=== PATIENT | male | born 1980 | race Caucasian/White ===

== ENCOUNTER 2024-02-18 20:20 | Emergency (ER) | payer OTHER, SELFPAY ==
[2024-02-18 20:24] VITALS: BP 160/88; PULSE 58; TEMP 36.6; O2SAT 98; BMI 36.0
--- NOTE | 2024-02-18 20:31 | ED.EXTPRO1 ---
HPI - Extremity Problem General Chief complaint: Extremity Problem, Nontraumatic Stated complaint: Lower Extremity Pain Time Seen by Provider: 02/18/24 20:27 Source: patient Mode of arrival: Wheelchair Limitations: no limitations History of Present Illness HPI Narrative: This 43-year-old male presents for evaluation of right low back pain with radiation down the lateral aspect of his right leg to his knee and at times down to his ankle. The patient states he started working out last week after not doing any exercise for approximately 2 years. He started with low back exercises. A day or 2 later he started having pain in his low back and went to the chiropractor and had a manipulation. He states he was feeling okay after that and went to [place] over the weekend to help his friend get ready for her birthday green party. He states he was feeling fine over the weekend and came home tonight and was trying to lay down to get some rest before work when he started having pain in his right lumbar region going into the lateral aspect of the right leg, down the iliotibial band to the right knee. He states he also was walking up the stairs and gently hit his knee. He did not fall at that time. He has no weakness or numbness. He denies any chest pain or shortness of breath. He has no calf pain or swelling. He has not had any bowel or bladder dysfunction. Related Data Allergies Allergy/AdvReac Type Severity Reaction Status Date / Time Benzodiazepines Allergy Intermediate Verified 02/18/24 20:27 ssri Allergy Intermediate Uncoded 02/18/24 20:27 Review of Systems ROS Status of ROS 10 or more systems reviewed and unremarkable except as noted in history and below Exam Narrative Exam Narrative: Vital signs and Nursing Notes reviewed: Patient is afebrile, mildly bradycardic with a pulse of 58 and blood pressure is elevated at 160/88, he is not hypoxic with pulse ox of 98% on room air General: Awake, alert, oriented, moderately overweight male, no respiratory distress, he moves easily about the stretcher HEENT: Normocephalic atraumatic, mucous membranes are moist and pink, eyes are clear, normal conjunctiva, vision is grossly intact Neck: Supple, no midline bony vertebral cervical spine tenderness Chest: Lungs are clear to auscultation with good air entry, there is no wheezing rhonchi or rales appreciated no accessory muscle use, patient is speaking in complete sentences-no chest wall tenderness to palpation CVS: Regular rate and rhythm S1-S2, no murmurs rubs or gallops, pulses are brisk and equal bilaterally ABD: Soft, nondistended, nontender, no rebound guarding or rigidity, bowel sounds are normal, no pulsatile masses appreciated Extremities: Moving all extremities, mild tenderness in the right lower lumbar region and right buttock region. Patient is able to complete all range of motion with the right and left lower extremity. He is able to flex and extend at the hip and knee. He is able to adductor and AB duct the right lower extremity. There is no calf swelling or tenderness. There is no notable knee effusion, redness or tenderness. Achilles is intact. Skin: Normal in appearance without rash,pallor, petechiae or purpura Neuro: No focal deficits, shank paperer strength is intact, upper and lower extremity strength and sensation is intact, deep tendon reflexes are brisk and equal bilaterally Constitutional Vital Signs, click to edit/add: Last Vital Signs Temp 98 F 02/18/24 20:24 Pulse 58 L 02/18/24 20:24 Resp 16 02/18/24 20:24 BP 160/88 H 02/18/24 20:24 Pulse Ox 98 02/18/24 20:24 Course Vital Signs Vital signs: Vital Signs Temperature 98 F 02/18/24 20:24 Pulse Rate 58 L 02/18/24 20:24 Respiratory Rate 16 02/18/24 20:24 Blood Pressure 160/88 H 02/18/24 20:24 Pulse Oximetry 98 02/18/24 20:24 Temperature 98 F 02/18/24 20:24 Pulse Rate 58 L 02/18/24 20:24 Respiratory Rate 16 02/18/24 20:24 Blood Pressure 160/88 H 02/18/24 20:24 Pulse Oximetry 98 02/18/24 20:24 MDM - Extremity (Nontraumatic) MDM Narrative Medical decision making narrative: This 43-year-old male presents for evaluation of right lower lumbar pain radiating down into his right buttock and down the lateral aspect of his right leg to his right knee and at times into his right foot. He started working out with back exercises last week then started having back pain and was seen by a chiropractor. After his chiropractic manipulation he was doing better until today when he tried to rest and started having pain going down his low back into his buttock and down his leg. He has no calf swelling or tenderness. He has no chest pain or shortness of breath. He has no dizziness palpitations tachycardia or syncope. I have no concerns about a DVT. His symptoms are consistent with acute lumbar strain with sciatica. The patient has never had [place] in the past but has tolerated Percocet. He was given a dose of Toradol and Solu-Medrol in the emergency department and will be discharged home with 2 Percocet and a Zofran as well as a prescription for Percocet, Motrin and Robaxin. Discharge Plan Discharge Stand Alone Forms: Portal Instructions Chief Complaint: Extremity Problem, Nontraumatic Clinical Impression: Acute myofascial strain of lumbar region, Sciatica of right side Patient Disposition: Home, Self-Care Time of Disposition Decision: 20:46 Condition: Good Print Language: Divehi Instructions: Sciatica (ED), Acute Low Back Pain (ED), Lower Back Exercises (ED) Referrals: TRISTON HANCOCK [Primary Care Provider] - 1 week
[2024-02-18] MEDS: METHYLPREDNISOLONE SOD SUCC PF 125 MG/2 ML VIAL IM (21:13)
[2024-02-18] MEDS: OXYCODONE HCL/ACETAMINOPHEN 5MG/325MG 2 TAB PO (21:13)
[2024-02-18] MEDS: KETOROLAC TROMETHAMINE 60 MG/2 ML VIAL IM (21:14)
[2024-02-18] MEDS: ONDANSETRON 4 MG RAPDIS TABLET SL (21:14)
== END 2024-02-18 21:26 | disposition home or self-care (01) ==
PROVIDERS: Emergency Provider Emergency Medicine; PCP Nurse Practitioner Family
DX: S39.012A Strain of muscle, fascia and tendon of lower back, initial encounter (principal); M54.41 Lumbago with sciatica, right side; X50.9XXA Other and unspecified overexertion or strenuous movements or postures, initial encounter
CPT/HCPCS: 96372; 99284; J1885; J2919; Q0162

== ENCOUNTER 2024-08-30 19:41 | Emergency (ER) | payer OTHER, SELFPAY ==
[2024-08-30 19:48] VITALS: BP 153/100; PULSE 80; TEMP 37.1; O2SAT 95; BMI 34.5
--- NOTE | 2024-08-30 19:56 | XR_ITS ---
The [address] [address] Patient Name: PRIYANK FONG MRN: [id number] date: 1980 Sex: M Assigned Patient Location: ER Current Patient Location: Accession/Order Number: [id number] Exam Date: 08/30/2024 08:10 Report Date: 08/30/2024 21:24 At the request of: EDISON JACOBS Procedure: XR wrist RT min 3V EXAMINATION: XR wrist RT min 3V, , 08/30/2024 8:10 AM EST INDICATION: pain HISTORY: Ordering Provider Reason for Exam: pain Technologist Note: Additional: COMPARISON: None. TECHNIQUE: Right wrist x-ray: 3 view(s). FINDINGS: No acute fracture. Joint alignment is anatomic. Joint spaces are preserved. Soft tissues are within normal limits. XR/XR wrist RT min 3V IMPRESSION: No acute fracture or traumatic malalignment. Electronically authenticated by: FRANK GOVEA Date: 08/30/2024 21:24
[2024-08-30] MEDS: KETOROLAC TROMETHAMINE 60 MG/2 ML VIAL IM (20:06)
--- NOTE | 2024-08-30 20:20 | ED_ITS ---
HPI HPI - General Adult General Chief complaint: Extremity Injury, Upper Stated complaint: UE INJURY Time Seen by Provider: 08/30/24 19:46 Source: patient Mode of arrival: walk-in Limitations: no limitations History of Present Illness HPI narrative: 44-year-old male presents for chief complaint of right wrist pain. He states he had initial pain about a week ago and has gotten progressively worse. States today feels like his wrist is frozen. No other injury or trauma. He denies a known history of gout. He states he took 1 steroid pill that he had leftover from previous and Naprosyn earlier today. No redness or swelling to the extremity no obvious deformity. He is right-hand dominant Related Data Previous Rx's ?Medication ?Instructions ?Recorded prednisone 20 mg tablet 20 mg PO DAILY #5 tabs 08/30/24 Allergies Allergy/AdvReac Type Severity Reaction Status Date / Time Benzodiazepines Allergy Unknown Unknown Verified 08/30/24 19:55 ssri Allergy Unknown Unknown Uncoded 08/30/24 19:55 Opioid HPI Opioid Management Most Recent Opioid Data: Last Pain Scale 8 08/30/24 20:10 08/30/24 Last ED Pain Assessment 08/30/24 20:09 Review of Systems ROS Narrative All Systems are negative except as noted/marked.All systems reviewed and otherwise negative PFSH PFSH Social History Little interest or pleasure in doing things: not at all Feeling down, depressed, or hopeless: not at all Exam Narrative Exam Narrative: Nurses note and vital signs reviewed and patient is not hypoxic. General: The patient appears well and in no apparent distress. Patient is resting comfortably on cart. Skin: Warm, dry, no pallor noted. There is no rash noted. Head: Normocephalic, atraumatic Eye: Normal conjunctiva, no drainage, EOMI. PERRL Ears, Nose, Mouth, and Throat: oral mucosa is moist. Nares patent. Mouth without vesicles. Ear canals patent. Tm's without Erythema Cardiovascular: Regular Rate and Rhythm Respiratory: Patient is in no distress, no accessory muscle use, lungs are clear to auscultation, no wheezing, rales or rhonchi Musculoskeletal: Right wrist tenderness no acute deformity dislocation no redness or swelling, patient has no evidence of calf tenderness, no pitting edema, symmetrical pulses noted bilaterally Neurological: A&O x4, normal speech Psychiatric: Cooperative Constitutional Vital Signs, click to edit/add: Last Vital Signs Temp 98.8 F 08/30/24 19:48 Pulse 80 08/30/24 19:48 Resp 16 08/30/24 19:48 BP 140/95 H 08/30/24 20:36 Pulse Ox 95 08/30/24 19:48 O2 Del Method Room Air 08/30/24 19:48 Course Vital Signs Vital signs: Vital Signs Temperature 98.8 F 08/30/24 19:48 Pulse Rate 80 08/30/24 19:48 Respiratory Rate 16 08/30/24 19:48 Blood Pressure 153/100 H 08/30/24 19:48 Pulse Oximetry 95 08/30/24 19:48 Oxygen Delivery Method Room Air 08/30/24 19:48 Temperature 98.8 F 08/30/24 19:48 Pulse Rate 80 08/30/24 19:48 Respiratory Rate 16 08/30/24 19:48 Blood Pressure 140/95 H 08/30/24 20:36 Pulse Oximetry 95 08/30/24 19:48 Oxygen Delivery Method Room Air 08/30/24 19:48 Medical Decision Making Differential Diagnosis Differential Diagnosis: Sprain, strain Medical Records Medical records reviewed: Yes I reviewed the patient's medical records Medical records narrative: Here with an accidental injury to the right wrist that occurred 1 week ago when he was using his wrist he felt a pulling sensation. Patient's x-ray shows no acute deformity or fracture. Discharged home with a prescription for Medrol Dosepak follow-up with Gokul's office. Patient given Balaji wrap as well to help with comfort. Imaging Data wrist: Radiologist's impression: ITS Impressions Wrist X-Ray 08/30/24 19:56 IMPRESSION: No acute fracture or traumatic malalignment. Electronically authenticated by: FRANK GOVEA Date: 08/30/2024 21:24 Discharge Plan Discharge Chief Complaint: Extremity Injury, Upper Clinical Impression: Sprain and strain of wrist Patient Disposition: Home, Self-Care Time of Disposition Decision: 20:19 Condition: Good Prescriptions / Home Meds: New prednisone 20 mg tablet 20 mg PO DAILY Qty: 5 0RF Print Language: Kinyarwanda Instructions: Sprain (ED), Wrist Sprain (ED) Referrals: TRISTON HANCOCK [Primary Care Provider] - 1 week Tk Hodgson MD [Physician] - 09/07/24 10:30 am Discharge Date/Time: 08/30/24 20:38
[2024-08-30 20:36] VITALS: BP 140/95
== END 2024-08-30 20:38 | disposition home or self-care (01) ==
PROVIDERS: Emergency Provider Emergency Medicine; PCP Nurse Practitioner Family
DX: S63.501A Unspecified sprain of right wrist, initial encounter (principal); S66.911A Strain of unspecified muscle, fascia and tendon at wrist and hand level, right hand, initial encounter; X58.XXXA Exposure to other specified factors, initial encounter
CPT/HCPCS: 73110; 96372; 99284; J1885

== ENCOUNTER 2025-05-02 18:55 | Emergency (ER) | payer OTHER, SELFPAY ==
--- OUTSIDE RECORDS SUMMARY | 2025-02-11 09:15 | XMS_ITS ---
Author Organization [facility] [place] Address [address] [place] [address] Care Team Providers Care Hydroponics Worker Name Role Phone Lenore Nogueira Primary Care Provider Allergies Allergen (clinical drug ingredient) Drug/Non Drug Allergy documented on EMR Reaction Allergy Type Onset Date Status Substance with serotonin re-uptake inhibitor mechanism of action (substance) SSRI's (uncoded) Worsen Symptoms Allergy Active REASON FOR VISIT Presents to office with mom for c/o migraine x1day, Also c/o Right side sciatica started to flare yesterday but really bad today, SELF PAY Medications Medication SIG (Take, Route, Frequency, Duration) Notes Start Date End Date Status Fioricet 50-300-40 MG 1 capsule as neede d Orally every 6 hrs for 30 days PRN 08/31/2024 Active Losartan Potassium 50 MG 1 tablet Orally Once a day for 30 days 06/24/2023 Active Amitriptyline HCl 25 MG 1 tablet at bedt neil as needed Orally Once a day for 30 days PRN 09/14/2024 Active Ciprofloxacin HCl 500 MG 1 tablet Orally every 12 hrs for 10 days 09/29/2024 Active Omeprazole 40 MG 1 capsule 30 minutes before morning meal Orally Once a day for 30 days 06/17/2023 Active Meclizine HCl 25 MG 1 tablet as needed O rally Q 6 hours 09/29/2024 Active Meloxicam 7.5 MG 1 tablet Orally Once a day for 30 days 11/30/2024 Active Social History Tobacco Use: Social History Observation Description Date Details (start date - stop date) Never Smoker NA - NA Tobacco Use/Smoking Question Answer Notes Patient is a nonsmoker AUDIT-C (Standard) Question Answer Notes Did you have a drink containing alcohol in the p ast year? No Points 0 Interpretation Negative Vital Signs Blood pressure systolic 144 mm Hg 02/12/20 25 Blood pressure diastolic 100 mm Hg 025 Height 67 in 02/11/2025 Weight 251.6 lbs 02/11/2025 BMI 39.4 kg/m2 02/11/2025 Encounters Encounter Location Date Provider Diagnosis [facility] [address] [place] [address] 02/11/2025 Lenore Mirlande Migraine G43.909 and Right sciatic nerve pain M54.31 Assessments Encounter Date Diagnosis (ICD Code) Assessment Notes Treatment Notes Treatment Clinical Notes Section Notes 02/11/2025 Migraine (ICD-10 - G43.909) toradol 60 norflex 60 samples of nurtec, ubrelvy [facility] 02/11/2025 Right sciatic nerve pain (ICD-10 - M54.31) kenalog 120 Plan Of Treatment Treatment Notes Assessment Notes Migraine toradol 60 norflex 60 samples of nurtec, ubrelvy given [facility] Right sciatic nerve pain kenalog 120 Next Appt Details Follow Up: prn, Reason: Medications Administered Medication Instructions Date of Administration Dosage Notes Triamcinolone 40 mg/ml 02/11/2025 120 mg Ketorolac Tromethamine 02/11/2025 60 mg Orphenadrine Citrate 02/11/2025 60 mg Progress Notes * Delonte FONG LDOB:02/1980 (44 yo M)Acc No.[id number]:02/11/2025 Progress Note Patient: Janak WEAVERmeaghan Hess Provider: Rajendra Nogueira ([facility]), [place] :1980 A ge:44 Y S ex:Male Date:02/11/2025 Address:[address] [place], [place] [id number] Check In:01:15 PM ESTCheck O ut:01:39 PM EST Subjective: * Chief Complaints: * 1 . Presents to office with mom for c/o migraine x1day. 2. Also c/o Right side sciatica started to flare yesterday but really bad today. 3. SELF PAY. * HPI: G eneral: took excedrin didnt help ELIAS right sciatica back of thigh to knee. * ROS: G eneral/Constitutional: Fever d enies. H eadache a dmits. W eight loss d enies. O phthalmologic: Discharge d enies. E ye Pain d enies. I tching and redness d enies. E NT: Nasal discharge d enies. N sarah congestion d enies.?Sore throat d enies. C ardiovascular: Chest tightness/ heavy pressure d enies. R apid heart rate d enies. S welling of extremities d enies. C hest pain d enies. ? R espiratory: Productive cough d enies. C hest pain d enies. C ough d enies. S hortness of breath d enies. W heezing d enies. ? G astrointestinal: Abdominal pain d enies. C onstipation d enies. D ecreased appetite d enies. D iarrhea d enies. N ausea d enies. V omiting?denies. G enitourinary: Urinary incontinence d enies. P ainful urination d enies. M usculoskeletal: Back pain a dmits right sciatica to knee . N lobito pain d enies. M uscle aches d enies. S kin: Rash d enies. S kin lesion(s) d enies. ? * Active Problem List F41.9 Anxiety Modified On:06/17/2023/U Status:confirmed M25.562 Knee pain, left Modified On:06/17/2023U Status:confirmed G44.209 Tension headache Modified On:06/17/2023U Status:confirmed E66.3 Over weight Modified On:06/17/2023/U Status:confirmed G47.00 Insomnia Modified On:06/17/2023/U Status:confirmed R13.10 Dysphagia, unspecifi ed Modified On:06/17/2023/U Status:confirmed I10 Essential (primary) hypertension Modified On:09/19/2023/U Status:confirmed M54.31 Right sciatic nerve pain Modified On:02/19/2024/U Status:confirmed M19.90 Arthritis Modified On:11/30/2024/U Status:confirmed G43.909 Migraine Modified On:12/24/2024/U Status:confirmed E78.5 Hyperlipidemia Modified On:12/31/2024 Status:confirmed * Medical History: A nxiety, Skin tags, multiple acquired, Knee pain, left, Occult blood in stools, Insomnia, Tension headache, Tendonitis, Back pain, thoracic, Acute paronychia of finger, Over weight, Bronchitis.? * Surgical History: T osilectomy . * Family History: F ather: . M other: alive. B rother(s): alive. 1 brother(s) - healthy. .? * Social History: T obacco Use: T obacco Use/Smoking P atient is a n onsmoker D rug/Alcohol: A RY-C (Standard) D id you have a drink containing alcohol in the past year? N o P oints 0 I nterpretation N egative * Medications: T aking Amitriptyline HCl 25 MG Tablet 1 tablet at bedtime as needed Orally Once a day , Notes to Pharmacist: PRN, Taking Ciprofloxacin HCl 500 MG Tablet 1 tablet Orally every 12 hrs , Taking Fioricet(Rpjabhzlhe-CKHT-Iwmiryqq) 50-300-40 MG Capsule 1 capsule as needed Orally every 6 hrs , Notes to Pharmacist: PRN, Taking Losartan Potassium 50 MG Tablet 1 tablet Orally Once a day , Taking Meclizine HCl 25 MG Tablet 1 tablet as needed Orally Q 6 hours , Taking Meloxicam 7.5 MG Tablet 1 tablet Orally Once a day , Taking Omeprazole 40 MG Capsule Delayed Release 1 capsule 30 minutes before morning meal Orally Once a day , Discontinued predniSONE 20 MG Tablet 2 tablet Orally Once a day , Medication List reviewed and reconciled with the patient * Allergies: S SRI's: Worsen Symptoms - Allergy. Objective: * Vitals: W t:251.6lbs, Ht: 67 in, BP:144/100mm Hg, BMI:39.4Index, Ht-cm: 170.18 cm, Wt-k.13 kg. * Examination: G eneral Examinations: GENERAL APPEARANCE: a lert and oriented, i n no acute distress. EYES: c onjunctiva normal, sclera non-icteric. NOSE: n ormal external appearance. LUNGS: c lear to auscultation bilaterally. CARDIO: r egular rate and rhythm, S1, S2 normal. MUSCULOSKELETAL: d ecreased ROM due to right sciatica. SKIN: w arm and dry. Assessment: * Assessment: 1. M igraine - G43.909 (Primary) 2 . R ight sciatic nerve pain - M54.31? Plan: * Treatment: 2. R ight sciatic nerve pain Notes: kenalog 120 * Therapeutic Injections: Triamcinolone 40 mg/ml : 120 mg (Route: Intramuscular) given by Sharon Camacho , MR on right deltoid (Migraine, Right sciatic nerve pain) Ketorolac Tromethamine : 60 mg (Route: Intramuscular) given by Sharon Camacho , MR on left deltoid (Migraine) Orphenadrine Citrate : 60 mg (Route: Intramuscular) given by Sharon Camacho , MR on right gluteus (Migraine) * Procedure Codes: J 3301 TMC ACET,PER 10MG., Units: 12.00 , 02668 THERAP.INJ. OF MED. INTRAMUSCULAR OR SUBCUTANEOUS, J1885 TORADOL, PER 15 MG, Units: 4.00 , J2360 NORFLEX,UP TO 60MG. * Preventive Medicine: Screenings/Counseling: B FL ACTION PLAN Above Normal BMI Follow-up D ietary management education, guidance, and counseling See treatment section of progress note for complete details of management plan. * Follow Up: p rn * * Electronically signed by Annette Nogueira , [employer], [employer] LABOURER.FISHING LURE ASSEMBLER.[id number] on 02/15/2025 at 09:13 AM EDT Sign off status: Completed Visit Status: C HK (Check Out) true * Provider: Rajendra Nogueira (HERBERT), FISHING LURE ASSEMBLER Date: 02/11/2025 Generated for Adan patton/Leanna/Fernando on: 05/02/2025 07:01 PM EDT History and Physical Notes * HPI (History of Present Illness) Category Sub-Category Detail Notes Category Not es General took excedrin didnt help ELIAS right sciatica back of thigh to knee Examination Category Sub-Category Detail Notes Category Not es General Examinations GENERAL APPEARANCE: alert a nd oriented, in no acute distress EYES: conjunctiva normal, sclera non-icteric EARS: NOSE: normal external appe arance THROAT: CARDIO: regular rate and rhy thm, S1, S2 normal LUNGS: clear to auscultatio n bilaterally ABDOMEN: SKIN: warm and dry BACK: MUSCULOSKELETAL: decreased ROM due to right sciatica LYMPH NODES:
--- OUTSIDE RECORDS SUMMARY | 2025-02-12 06:58 | XMS_ITS ---
Author Organization The [facility] [place] Address [address] [place] [address] Care Team Providers Care Banjo Repairer Name Role Phone Lenore Nogueira Primary Care Provider REASON FOR VISIT f/u from appt Encounters Encounter Location Date Provider Diagnosis [facility] [address] [place] [address] 02/12/2025 Lenore Nogueira Plan Of Treatment No Information Progress Notes * Delonte FONG LDOB:02/1980 (44 yo M)Acc No.[id number]:02/12/2025 Patient: Belg[place] Delonte ANTUNEZ :1980 A ge:44 Y S ex:Male Address:[address] [place] [address], [id number] * true * Date: Generated for Printi ng/Faorag/eTransmitting on: 0 05/02/2025 07:00 PM EDT
--- OUTSIDE RECORDS SUMMARY | 2025-03-02 07:00 | XMS_ITS ---
Author Organization The [facility] in [place] Address [address] [place] [address] Care Team Providers Care Ultimate Hoops Scoreboard Operator Name Role Phone Lenore Nogueira Primary Care Provider [phone] Allergies Allergen (clinical drug ingredient) Drug/Non Drug Allergy documented on EMR Reaction Allergy Type Onset Date Status Substance with serotonin re-uptake inhibitor mechanism of action (substance) SSRI's (uncoded) Worsen Symptoms Allergy Active REASON FOR VISIT SELF PAY back pain and foot pain, incident happened saturday night. patient said his sister had a seizure and held caught her from falling and hurt his back. some back swelling on his left side, no bruising Medications Medication SIG (Take, Route, Frequency, Duration) Notes Start Date End Date Status Fioricet 50-300-40 MG 1 capsule as neede d Orally every 6 hrs for 30 days PRN 08/31/2024 Active Losartan Potassium 50 MG 1 tablet Orally Once a day for 30 days 06/24/2023 Active Meloxicam 7.5 MG 1 tablet Orally Once a day for 30 days 11/30/2024 Active Omeprazole 40 MG 1 capsule 30 minutes before morning meal Orally Once a day for 30 days 06/17/2023 Active Amitriptyline HCl 25 MG 1 tablet at bedt neil as needed Orally Once a day for 30 days PRN 09/14/2024 Active Meclizine HCl 25 MG 1 tablet as needed O rally Q 6 hours 09/29/2024 Active Social History Tobacco Use: Social History Observation Description Date Details (start date - stop date) Never Smoker NA - NA Tobacco Use/Smoking Question Answer Notes Patient is a nonsmoker AUDIT-C (Standard) Question Answer Notes Did you have a drink containing alcohol in the p ast year? No Points 0 Interpretation Negative Vital Signs Blood pressure systolic 130 mm Hg 03/02/20 25 Blood pressure diastolic 72 mm Hg 025 Height 67 in 03/02/2025 Weight 248 lbs 03/02/2025 BMI 38.84 kg/m2 03/02/2025 Encounters Encounter Location Date Provider Diagnosis [facility] [address] [place] [address] 03/02/2025 Lenore Nogueira Acute back pain M54.9 Assessments Encounter Date Diagnosis (ICD Code) Assessment Notes Treatment Notes Treatment Clinical Notes Section Notes 03/02/2025 Acute back pain (ICD-10 - M54.9) Toradol and Norflex 60 kenalog 120 fu as needed Plan Of Treatment Treatment Notes Assessment Notes Acute back pain Toradol and Norflex 60 kenalog 120 fu as needed Next Appt Details Follow Up: prn, Reason: Medications Administered Medication Instructions Date of Administration Dosage Notes Ketorolac Tromethamine 03/02/2025 60 mg Orphenadrine Citrate 03/02/2025 60 mg Triamcinolone 40 mg/ml 03/02/2025 120 mg Progress Notes * Delonte FONG LDOB:02/1980 (44 yo M)Acc No.[id number]:03/02/2025 Progress Note Patient: Delonte WEAVER Provider: Rajendra Nogueira ([facility]), HEART DOCTOR :1980 A ge:44 Y S ex:Male Date:03/02/2025 Address:[address] [place], [place] [id number] Check In:10:59 AM ESTCheck O ut:11:24 AM EST Subjective: * Chief Complaints: * 1 . SELF PAY back pain and foot pain. 2. Incident happened saturday night. patient said his sister had a seizure and held caught her from falling and hurt his back. some back swelling on his left side, no bruising. * ROS: G eneral/Constitutional: Fever d enies. H eadache d enies. W eight loss?denies. O phthalmologic: Discharge d enies. E ye [...] P ainful urination d enies. M usculoskeletal: Patient complaining of l eft medial foot pain. B ack pain l eft side. N lobito pain d enies. M uscle aches d enies. S kin: Rash d enies. S kin lesion(s) d enies. ? * Active Problem List F41.9 Anxiety Modified On:06/17/2023U Status:confirmed M25.562 Knee pain, left Modified On:06/17/2023U Status:confirmed G44.209 Tension headache Modified On:06/17/2023U Status:confirmed E66.3 Over weight Modified On:06/17/2023U Status:confirmed G47.00 Insomnia Modified On:06/17/2023U Status:confirmed R13.10 Dysphagia, unspecifi ed Modified On:06/17/2023U Status:confirmed I10 Essential (primary) hypertension Modified On:09/19/2023U Status:confirmed M54.31 Right sciatic nerve pain Modified On:02/19/2024U Status:confirmed M19.90 Arthritis Modified On:11/30/2024U Status:confirmed G43.909 Migraine Modified On:05/01/2025W/U Status:confirmed E78.5 Hyperlipidemia Modified On:12/31/2024W/U Status:confirmed * Medical History: A nxiety, Skin tags, multiple acquired, Knee pain, left, Occult blood in stools, Insomnia, Tension headache, Tendonitis, Back pain, thoracic, Acute paronychia of finger, Over weight, Bronchitis.? * Surgical History: T osilectomy . * Family History: F ather: . M other: alive. B rother(s): alive. 1 brother(s) , 1 sister(s) - healthy. . * Social History: T obacco Use: T [...] day , Notes to Pharmacist: PRN, Taking Fioricet(Jueygfbctc-FZLC-Qhkfxnah) 50-300-40 MG Capsule 1 capsule as needed [...] morning meal Orally Once a day , Medication List reviewed and reconciled with the patient * Allergies: S SRI's: Worsen Symptoms - Allergy. Objective: * Vitals: W t:248lbs, Ht: 67 in, BP:130/72mm Hg, BMI:38.84Index, Ht-cm: 170.18 cm, Wt-k.49 kg. * Examination: G eneral Examinations: GENERAL APPEARANCE: a lert and oriented, i n no acute distress. EYES: c onjunctiva normal, sclera non-icteric. NOSE: n ormal external appearance. LUNGS: c lear to auscultation bilaterally. CARDIO: r egular rate and rhythm, S1, S2 normal. ABDOMEN: s oft, nontender. MUSCULOSKELETAL: l eft lower back, tenderness with palpation, decreased ROM due to pain no redness, swelling noted to left foot. SKIN: w arm and dry. Assessment: * Assessment: 1. A cute back pain - M54.9 (Primary) Plan: * Treatment: * Therapeutic Injections: Triamcinolone 40 mg/ml : 120 mg (Route: Intramuscular) given by XI De La Cruz on right gluteus (Acute back pain) Ketorolac Tromethamine : 60 mg (Route: Intramuscular) given by XI De La Cruz on right gluteus (Acute back pain) Orphenadrine Citrate : 60 mg (Route: Intramuscular) given by XI De La Cruz on left gluteus (Acute back pain) * Procedure Codes: 9 6372 THERAP.INJ. OF MED. INTRAMUSCULAR OR SUBCUTANEOUS, J1885 TORADOL, PER 15 MG, Units: 4.00 , J2360 NORFLEX,UP TO 60MG., J3301 TMC ACET,PER 10MG., Units: 12.00 * Preventive Medicine: Screenings/Counseling: B NC ACTION PLAN Above Normal BMI Follow-up D ietary management education, guidance, and counseling * Follow Up: p rn * * Sign off status: Completed Visit Status: C HK (Check Out) true * Provider: Rajendra Nogueira ([facility]), HEART DOCTOR Date: 03/02/2025 Generated for Adan patton/Leanna/eTransmitting on: 0 05/02/2025 07:00 PM EDT History and Physical Notes * Examination Category Sub-Category Detail Notes Category Not es General Examinations GENERAL APPEARANCE: alert a nd oriented, in no acute distress EYES: conjunctiva normal, sclera non-icteric EARS: NOSE: normal external appe arance THROAT: CARDIO: regular rate and rhy thm, S1, S2 normal LUNGS: clear to auscultatio n bilaterally ABDOMEN: soft, nontender SKIN: warm and dry BACK: MUSCULOSKELETAL: left lower back, ten derness with palpation, decreased ROM due to pain no redness, swelling noted to left foot LYMPH NODES:
--- OUTSIDE RECORDS SUMMARY | 2025-03-16 09:30 | XMS_ITS ---
Author Organization The [facility] in [place] Address [address] [place] [address] Care Team Providers Care Resource Director Name Role Phone Lenore Nogueira Primary Care Provider Allergies Allergen (clinical drug ingredient) Drug/Non Drug Allergy documented on EMR Reaction Allergy Type Onset Date Status Substance with serotonin re-uptake inhibitor mechanism of action (substance) SSRI's (uncoded) Worsen Symptoms Allergy Active REASON FOR VISIT Presents to office alone for c/o migraine x2 days Medications Medication SIG (Take, Route, Frequency, Duration) Notes Start Date End Date Status Losartan Potassium 50 MG 1 tablet Orally Once a day for 30 days 06/24/2023 Active Fioricet 50-300-40 MG 1 capsule as neede d Orally every 6 hrs for 30 days PRN 08/31/2024 Active Amitriptyline HCl 25 MG 1 tablet at bedt neil as needed Orally Once a day for 30 days PRN 09/14/2024 Active Meloxicam 7.5 MG 1 tablet Orally [...] Interpretation Negative Vital Signs Blood pressure systolic 138 mm Hg 03/16/20 25 Blood pressure diastolic 86 mm Hg 025 Height 67 in 03/16/2025 Weight 245.4 lbs 03/16/2025 BMI 38.43 kg/m2 03/16/2025 Encounters Encounter Location Date Provider Diagnosis [facility] [address] [place] [address] 03/16/2025 Lenore Nogueira Migraine G43.909 Assessments Encounter Date Diagnosis (ICD Code) Assessment Notes Treatment Notes Treatment Clinical Notes Section Notes 03/16/2025 Migraine (ICD-10 - G43.909) Toradol 60 Norflex 60 samples nurtec, ubrelvy fu [place] , [place] fu [place]? Plan Of Treatment Treatment Notes Assessment Notes Migraine Toradol 60 Norflex 60 samples nurtec, ubrelvy fu [place] , [place] fu [place]? Next Appt Details Follow Up: prn, Reason: Medications Administered Medication Instructions Date of Administration Dosage Notes Ketorolac Tromethamine 03/16/2025 60 mg Orphenadrine Citrate 03/16/2025 60 mg Progress Notes * Delonte FONG LDOB:02/1980 (44 yo M)Acc No.[id number]:03/16/2025 Progress Note Patient: Belgica ANTUNEZ Delonte Deshawn Provider: Rajendra Nogueira ([facility]), SHIFT SUPERINTENDENT CAUSTIC CRESYLATE :1980 A ge:44 Y S ex:Male Date:03/16/2025 Address:[address] [place], [place] [id number] Check In:01:28 PM ESTCheck O ut:02:02 PM EST Subjective: * Chief Complaints: * 1 . Presents to office alone for c/o migraine x2 days. * HPI: G eneral: headache for 2 days excedrin not doing it base of skull shoots to right side, throbbing, noises bother. * ROS: G eneral/Constitutional: Fever d enies. [...] urination d enies. M usculoskeletal: Back pain d enies. N lobito pain d enies. M uscle [...] Arthritis Modified On:11/30/2024U Status:confirmed G43.909 Migraine Modified On:12/24/2024U Status:confirmed E78.5 Hyperlipidemia Modified On:12/31/2024U Status:confirmed * Medical History: A nxiety, Skin tags, multiple acquired, Knee pain, left, Occult blood in stools, Insomnia, Tension headache, Tendonitis, Back pain, thoracic, Acute paronychia of finger, Over weight, Bronchitis.? * Surgical History: T osilectomy . * Family History: F ather: . M other: alive. B jorge(s): alive. 1 brother(s) , 1 sister(s) - [...] day , Notes to Pharmacist: PRN, Taking Fioricet(Xjcgxoeitg-AQIC-Dmfsykph) 50-300-40 MG Capsule 1 capsule as needed [...] Symptoms - Allergy. Objective: * Vitals: W t:245.4lbs, Ht: 67 in, BP:138/86mm Hg, BMI:38.43Index, Ht-cm: 170.18 cm, Wt-k.31 kg. * Examination: G eneral Examinations: GENERAL APPEARANCE: a lert and oriented. NOSE: n ormal external appearance. LYMPH NODES: n ormal, no cervical, axillary, or inguinal adenopathy. LUNGS: c lear to auscultation bilaterally. CARDIO: r egular rate and rhythm, S1, S2 normal. ABDOMEN: s oft, nontender. MUSCULOSKELETAL: G ait and station normal. SKIN: w arm and dry. Assessment: * Assessment: 1. [facility] G43.909 (Primary) Plan: * Treatment: * Therapeutic Injections: Ketorolac Tromethamine : 60 mg (Route: Intramuscular) given by MR Brenda on right deltoid (Migraine) Orphenadrine Citrate : 60 mg (Route: Intramuscular) given by Sharon Camacho , on left deltoid (Migraine) * Procedure Codes: 9 6372 THERAP.INJ. OF MED. INTRAMUSCULAR OR SUBCUTANEOUS, J1885 TORADOL, PER 15 MG, Units: 4.00 , J2360 NORFLEX,UP TO 60MG. * Preventive Medicine: Screenings/Counseling: B ME ACTION PLAN Above Normal BMI Follow-up D ietary management education, guidance, and counseling See treatment section of progress note for complete details of management plan. * Follow Up: p rn * * Electronically signed by Annette Nogueira , EXCHANGE TELLER, JIG AND FIXTURE REPAIRER.SHIFT SUPERINTENDENT CAUSTIC CRESYLATE.[id number] on 03/17/2025 at 11:45 AM EDT Sign off status: Completed Visit Status: C HK (Check Out) true * Provider: Rajendra Nogueira ([facility]), SHIFT SUPERINTENDENT CAUSTIC CRESYLATE Date: 0 03/16/2025 Generated for Printi ng/Leanna/eTransmitting on: 0 05/02/2025 07:00 PM EDT History and Physical Notes * HPI (History of Present Illness) Category Sub-Category Detail Notes Category Not es General headache for 2 days excedrin not doing it base of skull shoots to right side, throbbing, noises bother Examination Category Sub-Category Detail Notes Category Not es General Examinations GENERAL APPEARANCE: alert and gavin ented EYES: EARS: NOSE: normal external appe arance THROAT: CARDIO: regular rate and rhy thm, S1, S2 normal LUNGS: clear to auscultatio n bilaterally ABDOMEN: soft, nontender SKIN: warm and dry BACK: MUSCULOSKELETAL: Gait and station nor mal LYMPH NODES: normal, no cervical, axillary, or inguinal adenopathy
--- OUTSIDE RECORDS SUMMARY | 2025-04-07 07:22 | XMS_ITS ---
Author Organization The [facility] in [place] Address [address] [place] [address] Care Team Providers Care State Federal Relations Deputy Director Name Role Phone Lenore Nogueira Primary Care Provider REASON FOR VISIT nurte Encounters Encounter Location Date Provider Diagnosis [facility] [address] [place] [address] 04/07/2025 Lenore Nogueira Plan Of Treatment No Information Progress Notes * Delonte FONG LDOB:02/1980 (44 yo M)Acc No.[id number]:04/07/2025 Patient: Belgica LENALAMAR Delonte Hess :1980 A ge:44 Y S ex:Male Address:[address] [place] [address], [address] * true * Date: Generated for Printi ng/Faorag/eTransmitting on: 0 05/02/2025 07:00 PM EDT
--- OUTSIDE RECORDS SUMMARY | 2025-05-02 19:00 | XMS_ITS | CCD ---
Author Organization [facility] Care Team Providers Care Resistance Welder Name Role Phone MISC, DOCTOR Primary Care Unavailable PAY, BOB Attending Unavailable ZEINAB HALL Consulting Unavailable PAY, BOB Admitting Unavailable BEN ASIF Attending Unavailable LAYA, BEN Consulting Unavailable KEENA, DOCTOR Primary Care Unavailable LAYA, BEN Admitting Unavailable Tk Mallory Consulting Unavailable [place] [facility]), DO Beena Primary Care Provider ION Gallardo Emergency Provider [phone] SAMI Bentley Emergency Provider [phone] [facility] DO [place] Primary Care Provider DO Mookie Berry Emergency Provider [phone] [facility]), DO Beena Primary Care Provider DO Rocky Novoa Emergency Provider [phone] ION Mcbride Emergency Provider DO Raymundo Mendez Emergency Provider [phone] [facility]), DO Beena Primary Care Provider ION Mcbridee Ho Emergency Provider DO Raymundo Mendez Emergency Provider [phone] ION Carrizales Emergency Provider [phone] [facility]), Beena Primary Care Unavailabl e Rocky Novoa Attending Unavailable Rocky Novoa Admitting Unavailable [place] [facility]), Beena Primary Care Unavailabl e Mookie Berry Attending Unavailable Mookie Berry Admitting Unavailable Ne Carrizales Attending Unavailable Ne Carrizales Admitting Unavailable [place] [facility]), Beena Primary Care Unavailabl e Raymundo Mendez Attending Unavailable Raymundo Mendez Admitting Unavailable [place] [facility]), Beena Primary [facility] [place] UnavailDenise Duggan Attending Unavailable Denise Mcbride Admitting Unavailable [place] [facility]), [place] Primary [facility] [place] Unavailabl e Allergies Allergy Classification Reported Allergen(s) Allergy Type Date of Onset Reaction(s) Facility (1 source) buPROPion Drug Allergy 5 [facility] Repository (7 sources) buPROPion; Translations: [bupropion] Drug Allergy 2 Unknown Reaction, [facility] (7 sources) Sertraline; Translations: [sertraline] Drug Allergy 2 Unknown Reaction, [facility] (7 sources) venlafaxine; Translations: [venlafaxine] Drug Allergy 2 Unknown Reaction, [facility] Medications Current Medications Medication Drug Class(es) Dates Sig (Normalized) Sig (Original) naproxen 500 mg oral tablet (1 source) Nonsteroidal Anti-inflammatory Drug Start: 08-01-2023 take 1 tablet by mouth twice daily Naproxen (Naprosyn) 500 mg tablet Active 500 MG PO Twice daily August 01, 2023 12:00am [place] (No Known Home Meds) (4 sources) Start: 12-28-2022 [place] (No Known Home Meds) Active December 28, 2022 12:00am Completed/Discontinued Medications Medication Drug Class(es) Dates Sig (Normalized) Sig (Original) acetaminophen 325 mg / butalbital 50 mg / caffeine 40 mg oral tablet (6 sources) Barbiturate, Central Nervous System Stimulant, Methylxanthine Start: 05-18-2022 End: 12-28-2022 Butalbital-Acetamin ophen-Caff Discontinued TAB TABLET May 17, 2022 11:00pm December 28, 2022 6:04pm metoclopramide 10 mg oral tablet (6 sources) Dopamine-2 Receptor Antagonist Start: 05-18-2022 End: 12-28-2022 take 1 tablet by mouth every six hours Metoclopramide Hcl (Reglan) 10 mg tablet Discontinued 10 MG PO Q6H May 17, 2022 11:00pm December 28, 2022 6:04pm topiramate 15 mg oral capsule (6 sources) Start: 05-18-2022 End: 12-28-2022 Topiramate (Topamax) 15 mg Capsule, Sprinkle Discontinued MG PO May 17, 2022 11:00pm December 28, 2022 6:04pm traMADol hydrochloride 50 mg oral tablet (6 sources) Opioid Agonist Start: 04-14-2022 End: 05-18-2022 take 1 tablet by mouth every eight hours Tramadol (Ultram) 50 mg tablet Discontinued 50 MG PO Q8H 4 2 April 13, 2022 11:00pm May 18, 2022 4:25pm Problems Active Problems Problem Classification Problem Date Documented Da te Episodic/Chronic Abdominal pain (1 source) Unspecified abdominal pain; Translations: [Unspecified abdominal pain] Onset: 08-01-2023 Episodic Anxiety disorders (2 sources) Anxiety; Translations: [Anxiety disorder, unspecified] 06-04-2023 Chronic Esophageal disorders (1 source) Esophageal mass; Translations: [Mass of esophagus] 08-01-2023 Episodic Headache; including migraine (1 source) Migraine, unspecified, not intractable, without status migrainosus; Translations: [Migraine, unspecified, not intractable, without status migrainosus] Onset: 03-27-2023 Chronic Headache; including migraine (6 sources) Headache; Translations: [Headache] 05-18-2022 Episodic Headache; including migraine (1 source) Headache; including migraine; Translations: [Headache, unspecified] Onset: 12-28-2022 Other infections; including parasitic (1 source) Personal history of other infectious and parasitic diseases; Translations: [PERSONAL HX OTH INF AND PARASITIC DZ] Onset: 08-23-2020 Episodic Other non-traumatic joint disorders (4 sources) Pain in right ankle and joints of right foot; Translations: [PAIN IN RIGHT ANKLE] Onset: 08-20-2020 Episodic Other screening for suspected conditions (not mental disorders or infectious disease) (1 source) CT of abdomen abnormal; Translations: [Abnormal findings on diagnostic imaging of liver and biliary tract] 08-01-2023 Episodic Residual codes; unclassified (2 sources) Disturbance in sleep behavior; Translations: [Sleep disorder, unspecified] 06-04-2023 Episodic Residual codes; unclassified (1 source) Sleep disorder, unspecified; Translations: [Sleep disorder, unspecified] Onset: 06-04-2023 Episodic Residual codes; unclassified (1 source) Insomnia, unspecified; Translations: [Insomnia, unspecified] Onset: 06-03-2023 Episodic Unclassified (1 source) Other malaise; Translations: [Other malaise] Onset: 06-03-2023 Viral infection (3 sources) Respiratory syncytial virus infection; Translations: [Other specified viral diseases] 06-03-2023 Episodic Past or Other Problems Problem Classification Problem Date Documented Da te Episodic/Chronic Fever of unknown origin (4 sources) Fever, unspecified; Translations: [FEVER UNSPECIFIED] Onset: 10-07-2019 Episodic Influenza (1 source) Influenza due to unidentified influenza virus with other respiratory manifestations; Translations: [FLU D/T UNIDENT FLU VIR RESP MANIF] Onset: 10-09-2019 Episodic Results Test Name Value Interpretation Reference Range Facility Activated partial thrombopla stin time (aPTT) in platelet poor plasma by coagulation aOrdered By: Ne Carrizales on 08-01-2023 aPTT Coag (PPP) [Time] 33.2 s 25.1-36.5 [facility] Comment on above: A hematocrit value g reater than 55% may lead to inaccurate results in coagulation testing. Patients having hematocrit values >55% require a special collection tube for coagulation studies. Please contact the laboratory at [phone] for redraw instructions. Alanine aminotransferase [En zymatic activity/volume] in Serum or PlasmaOrdered By: Ne Carrizales on 08-01-2023 ALT [Catalytic activity/Vol] 41 U/L 7-52 [facility] Albumin [Mass/volume] in Ser um or Plasma by Bromocresol green (BCG) dye binding methoOrdered By: Ne Carrizales on 08-01-2023 Albumin BCG dye [Mass/Vol] 4.8 g/dL 3.5-5.7 [facility] Alkaline phosphatase [Enzyma tic activity/volume] in Serum or PlasmaOrdered By: Ne Carrizales on 08-01-2023 ALP [Catalytic activity/Vol] 44 U/L 34-104 [facility] Aspartate aminotransferase [ Enzymatic activity/volume] in Serum or PlasmaOrdered By: Ne Carrizales on 08-01-2023 AST [Catalytic activity/Vol] 28 U/L 13-39 [facility] Basic Metabolic Panelon Anion gap [Moles/Vol] 11.5 mmol/L Normal 6.0-15.0 [facility] Comment on above: Performed By: #### L IPASE, PT, CBC, PTT, HEPATIC, BMP #### [facility] [address] Calcium [Mass/Vol] 9.9 mg/dL Normal 8.6-10.3 [facility] Comment on above: Performed By: #### L IPASE, PT, CBC, PTT, HEPATIC, BMP #### [facility] [address] [place] [address] [place] Chloride [Moles/Vol] 105 mmol/L Normal 98-107 [facility] Comment on above: Performed By: #### L IPASE, PT, CBC, PTT, HEPATIC, BMP #### [facility] [address] [place] [address] [place] CO2 [Moles/Vol] 28.4 mmol/L Normal 21.0-31.0 [facility] Comment on above: Performed By: #### L IPASE, PT, CBC, PTT, HEPATIC, BMP #### [facility] [address] [place] [address] [place] Creatinine [Mass/Vol] 1.09 mg/dL Normal 0.70-1.30 [facility] Comment on above: Performed By: #### L IPASE, PT, CBC, PTT, HEPATIC, BMP #### [facility] [address] [place] [address] [place] Creatinine Clr Calc Pharmacy 104.47 [facility] Comment on above: Performed By: #### L IPASE, PT, CBC, PTT, HEPATIC, BMP #### [facility] [address] [place] [id number] [place] GFR/1.73 sq M.predicted MDRD (S/P/Bld) [Vol rate/Area] mL/min/{1.73_m2} [facility] Comment on above: Performed By: #### L IPASE, PT, CBC, PTT, HEPATIC, BMP #### [facility] [address] [place] [address] [place] Glucose [Mass/Vol] 99 mg/dL Normal 70-100 [facility] Comment on above: Result Comment: [facility] Glucose Reference Range is dependent on time and content of last meal. Glucose of more than 200 mg/dL in a nonstressed, ambulatory subject supports the diagnosis of Diabetes Mellitus. ADA recommended reference range Performed By: #### L IPASE, PT, CBC, PTT, HEPATIC, BMP #### [facility] [address] Potassium [Moles/Vol] 3.9 mmol/L Normal 3.5-5.1 [facility] Comment on above: Performed By: #### L IPASE, PT, CBC, PTT, HEPATIC, BMP #### [facility] [address] Sodium [Moles/Vol] 141 mmol/L Normal 136-145 [facility] Comment on above: Performed By: #### L IPASE, PT, CBC, PTT, HEPATIC, BMP #### [facility] [address] Urea nitrogen [Mass/Vol] 18 mg/dL Normal 7-25 [facility] Comment on above: Performed By: #### L IPASE, PT, CBC, PTT, HEPATIC, BMP #### [facility] [address] [place] [address] [place] Basophils Auto (Bld) [#/Vol] Ordered By: Ne Carrizales on 08-01-2023 Basophils (Bld) [#/Vol] 0.1 10*3/uL 0.0-0.2 [facility] Basophils/100 WBC Auto (Bld) Ordered By: Ne Carrizales on 08-01-2023 Basophils/100 WBC (Bld) 0.7 % . [facility] Bilirubin Test strip Ql (U)O rdered By: Ne Carrizales on 08-01-2023 Bilirubin Ql (U) Negative Negative [facility] Bilirubin.direct [Mass/volum e] in Serum or PlasmaOrdered By: Ne Carrizales on 08-01-2023 Bilirubin.direct [Mass/Vol] 0.00 mg/dL 0.03-0.18 [facility] Comment on above: If the DBIL is less than 0.1, IBIL is not able to becalculated. Bilirubin.total [Mass/volume ] in Serum or PlasmaOrdered By: Ne Carrizales on 08-01-2023 Bilirubin [Mass/Vol] 0.4 mg/dL 0.3-1.0 [facility] CT abdomen pelvis wo conon 1 10-02-2022 CT abdomen pelvis wo con [facility] [place] [address] CT Scan Report Signed Patient: Delonte Huang MR#: [id number] : 1980 Acct:[id number] Age/Sex: 43 / M ADM Date: 08/01/23 Loc: ER Room: Type: [facility] ER Attending Dr: Copies to: Ne Carrizales APRN Ordering Provider: Ne Carrizales APRN Date of Service: 08/01/23 CT/CT abdomen pelvis wo con: flank CT ABDOMEN AND PELVIS WITHOUT CONTRAST COMPARISON: None CLINICAL DATA: Abdominal and low back pain with constipation. Spiral images were obtained through the abdomen and pelvis without contrast. This CT exam was performed using one or more following dose reduction techniques: Automated exposure control, adjustment of the mA and/or kV according to patient size, or use of iterative reconstruction technique. Limited cuts through the lung bases show no contributory pulmonary findings. There is a tiny hiatal hernia. There is soft tissue density within the lumen of the esophagus near the GE junction. It is uncertain if this is a food bolus or there could be a mass. Assessment of the intra-abdominal organs is slightly limited by the absence of contrast. There is decreased attenuation of the hepatic parenchyma which may be fatty infiltration with some focal sparing near the gallbladder fossa. There is, however, in oval area with subtle hyperdense rim at the right hepatic lobe measuring almost 10 cm in size. This will require further assessment to exclude the possibility of a mass. There is also a tiny hyperattenuating nodular area posterior to it measuring 12 to 13 mm. There are no definite calcified gallstones though there could be minimal sludge or gravel. The spleen, pancreas and adrenal glands show no acute findings. No renal calculi are present. There is a tiny hyperdense nodule along the capsule of the right kidney at mid to lower pole which is too small to fully characterize though it might be a hemorrhagic cyst. There is also a hyperdense somewhat nodular area at the upper pole of the left kidney measuring 18 mm in size where a hemorrhagic cyst is also possible. No renal calculi or hydronephrosis are noted. No ureteral dilatation or stones are seen. The abdominal aorta is normal caliber. There are a few small lymph nodes. No ascites is seen. There is food debris within the stomach. The small bowel loops are not distended. There is stool at the ascending colon and some air within the transverse colon. The left colon is underdistended. There is a small umbilical hernia containing fat. The bony structures are intact. Minor degenerative change is noted, greatest at L4-5. Images through the pelvis show normal caliber small bowel loops. No appendiceal inflammation is seen. There is stool at the cecum. The distal colon is underdistended. No diverticular disease is noted. The bladder shows no abnormal CT findings. There are patulous inguinal rings containing fat. There are benign inguinal lymph nodes with fatty luis. No ascites is present. CT/CT abdomen pelvis wo con IMPRESSION: QUESTION OF FOOD BOLUS OR MASS AT THE DISTAL THORACIC ESOPHAGUS. CLINICAL CORRELATION AND FOLLOW-UP ARE SUGGESTED. SUSPECTED FATTY LIVER WITH QUESTION OF MASSLIKE AREAS INVOLVING THE RIGHT LOBE. FOLLOW-UP WITH ENHANCED IMAGING AND/OR ULTRASOUND COULD BE PERFORMED. POSSIBLE RENAL HEMORRHAGIC CYSTS. NO BOWEL OR URINARY TRACT OBSTRUCTION. NO OTHER ACUTE FINDINGS. Impression dictated by: Jia Coker M.D.08/01/2023 3:09 PM Dictation Location: [place] [address] Transcribed By: MOHAN 08/01/23 1509 Dictated By: Jia Coker MD 08/01/23 1454 Signed By: 08/01/23 1509 [facility] Calcium [Mass/volume] in Ser um or PlasmaOrdered By: Ne Carrizales on 08-01-2023 Calcium [Mass/Vol] 9.9 mg/dL 8.6-10.3 [facility] Carbon dioxide, total [Moles /volume] in Serum or PlasmaOrdered By: Ne Carrizales on 08-01-2023 CO2 [Moles/Vol] 28.4 mmol/L 21.0-31.0 [facility] Chloride [Moles/volume] in S demi or PlasmaOrdered By: Ne Carrizales on 08-01-2023 Chloride [Moles/Vol] 105 mmol/L 98-107 [facility] Color Auto (U)Ordered By: Co annie Carrizales on 08-01-2023 Color (U) Yellow Yellow [facility] Complete Blood Count Auto Di ffon 08-01-2023 Basophils (Bld) [#/Vol] 0.1 10*3/uL Normal 0.0-0.2 [facility] Comment on above: Result Comment: PERF ORMED BY: [address] [place] [address] PATHOLOGIST RESEARCH QUALITY ASSURANCE SPECIALIST BIANKA BECKER M.D. Performed By: #### L IPASE, PT, CBC, PTT, HEPATIC, BMP #### [facility] [address] Basophils/100 WBC (Bld) 0.7 % Normal . [facility] Comment on above: Performed By: #### L IPASE, PT, CBC, PTT, HEPATIC, BMP #### [facility] [address] Eosinophils (Bld) [#/Vol] 0.4 10*3/uL Normal 0.0-0.45 [facility] Comment on above: Performed By: #### L IPASE, PT, CBC, PTT, HEPATIC, BMP #### [facility] [address] [place] [address] [place] Eosinophils/100 WBC (Bld) 3.5 % Normal . [facility] Comment on above: Performed By: #### L IPASE, PT, CBC, PTT, HEPATIC, BMP #### [facility] [address] [place] [address] Erythrocyte distribution width (RBC) [Ratio] 13.8 % Normal 12.0-14.8 [facility] Comment on above: Performed By: #### L IPASE, PT, CBC, PTT, HEPATIC, BMP #### [address] Hematocrit (Bld) [Volume fraction] 40.1 % Normal 38.8-50.0 [facility] Comment on above: Performed By: #### L IPASE, PT, CBC, PTT, HEPATIC, BMP #### [address] Hemoglobin (Bld) [Mass/Vol] 13.7 g/dL Normal 13.0-17.0 [facility] Comment on above: Performed By: #### L IPASE, PT, CBC, PTT, HEPATIC, BMP #### [address] Lymphocytes (Bld) [#/Vol] 2.5 10*3/uL Normal 1.00-4.8 [facility] Comment on above: Performed By: #### L IPASE, PT, CBC, PTT, HEPATIC, BMP #### [address] Lymphocytes/100 WBC (Bld) 22.5 % Normal . [facility] Comment on above: Performed By: #### L IPASE, PT, CBC, PTT, HEPATIC, BMP #### [address] MCH (RBC) [Entitic mass] 28.2 pg Normal 27.5-35.2 [facility] Comment on above: Performed By: #### L IPASE, PT, CBC, PTT, HEPATIC, BMP #### [address] MCV (RBC) [Entitic vol] 82.5 fL Low 83.5-101 [facility] Comment on above: Performed By: #### L IPASE, PT, CBC, PTT, HEPATIC, BMP #### [address] Mean Corpuscular HGB Conc 34.2 g/dL Normal 32.5-35.6 [facility] Comment on above: Performed By: #### L IPASE, PT, CBC, PTT, HEPATIC, BMP #### [facility] [address] [place] [address] [place] Monocytes (Bld) [#/Vol] 0.7 10*3/uL Normal 0.0-0.8 [facility] Comment on above: Performed By: #### L IPASE, PT, CBC, PTT, HEPATIC, BMP #### [place] [address] [place] Monocytes/100 WBC (Bld) 16.48 % Normal 0.00-20.00 [facility] Comment on above: Performed By: #### L IPASE, PT, CBC, PTT, HEPATIC, BMP #### [place] [address] [place] Monocytes/100 WBC (Bld) 6.4 % Normal . [facility] Comment on above: Performed By: #### L IPASE, PT, CBC, PTT, HEPATIC, BMP #### [facility] [address] [place] [address] Neutrophils (Bld) [#/Vol] 7.5 10*3/uL Normal 1.8-7.7 [facility] Comment on above: Performed By: #### L IPASE, PT, CBC, PTT, HEPATIC, BMP #### [place] [address] [place] Neutrophils/100 WBC (Bld) 66.9 % Normal . [facility] Comment on above: Performed By: #### L IPASE, PT, CBC, PTT, HEPATIC, BMP #### [place] [address] [place] NRBC% 0.3 /100{WBC} Normal 0-0.5 [facility] Comment on above: Performed By: #### L IPASE, PT, CBC, PTT, HEPATIC, BMP #### [place] [address] [place] Platelet mean volume (Bld) [Entitic vol] 9.3 fL Normal 6.6-10.1 [facility] Comment on above: Performed By: #### L IPASE, PT, CBC, PTT, HEPATIC, BMP #### [facility] [address] Platelets (Bld) [#/Vol] 242 10*3/uL Normal 150-450 [facility] Comment on above: Performed By: #### L IPASE, PT, CBC, PTT, HEPATIC, BMP #### [facility] [address] RBC (Bld) [#/Vol] 4.86 10*6/uL Normal 3.90-5.60 [facility] Comment on above: Performed By: #### L IPASE, PT, CBC, PTT, HEPATIC, BMP #### [facility] [address] WBC (Bld) [#/Vol] 11.3 10*3/uL High 4.1-10.5 [facility] Comment on above: Performed By: #### L IPASE, PT, CBC, PTT, HEPATIC, BMP #### [facility] [address] Creatinine [Mass/volume] in Serum or PlasmaOrdered By: Ne Carrizales on 08-01-2023 Creatinine [Mass/Vol] 1.09 mg/dL 0.70-1.30 [facility] Eosinophils Auto (Bld) [#/Vo l]Ordered By: Ne Carrizales on 08-01-2023 Eosinophils (Bld) [#/Vol] 0.4 10*3/uL 0.0-0.45 [facility] Eosinophils/100 WBC Auto (Bl d)Ordered By: Ne Carrizales on 08-01-2023 Eosinophils/100 WBC (Bld) 3.5 % . [facility] Erythrocyte distribution wid th Auto (RBC) [Ratio]Ordered By: Ne Carrizales on 08-01-2023 Erythrocyte distribution width (RBC) [Ratio] 13.8 % 12.0-14.8 [facility] Globulin Calc (S) [Mass/Vol] Ordered By: Ne Carrizales on 08-01-2023 Globulin (S) [Mass/Vol] 2.5 g/dL [facility] Glucose [Mass/volume] in Ser um or PlasmaOrdered By: Ne Carrizales on 08-01-2023 Glucose [Mass/Vol] 99 mg/dL 70-100 [facility] Comment on above: ADA recommended refe rence rangeRandom Glucose Reference Range is dependent on time and content of last meal. Glucose of more than 200 mg/dL in a nonstressed, ambulatory subject supports the diagnosis of Diabetes Mellitus. Hematocrit Auto (Bld) [Volum e fraction]Ordered By: Ne Carrizales on 08-01-2023 Hematocrit (Bld) [Volume fraction] 40.1 % 38.8-50.0 [facility] Hemoglobin [Mass/volume] in BloodOrdered By: Ne Carrizales on 08-01-2023 Hemoglobin (Bld) [Mass/Vol] 13.7 g/dL 13.0-17.0 [facility] Hepatic Panelon 08-01-2023 Albumin [Mass/Vol] 4.8 g/dL Normal 3.5-5.7 [facility] Comment on above: Performed By: #### L IPASE, PT, CBC, PTT, HEPATIC, BMP #### [facility] [address] [place] [address] [place] Albumin/Globulin [Mass ratio] 1.9 {ratio} Normal [facility] Comment on above: Performed By: #### L IPASE, PT, CBC, PTT, HEPATIC, BMP #### [facility] [address] [place] [id number] [place] ALP [Catalytic activity/Vol] 44 U/L Normal 34-104 [facility] Comment on above: Performed By: #### L IPASE, PT, CBC, PTT, HEPATIC, BMP #### [facility] [address] [place] [address] [place] ALT [Catalytic activity/Vol] 41 U/L Normal 7-52 [facility] Comment on above: Performed By: #### L IPASE, PT, CBC, PTT, HEPATIC, BMP #### [facility] [address] [place] [id number] [place] AST [Catalytic activity/Vol] 28 U/L Normal 13-39 [facility] Comment on above: Performed By: #### L IPASE, PT, CBC, PTT, HEPATIC, BMP #### [facility] [address] Bilirubin [Mass/Vol] 0.4 mg/dL Normal 0.3-1.0 [facility] Comment on above: Performed By: #### L IPASE, PT, CBC, PTT, HEPATIC, BMP #### [facility] [address] Bilirubin,Indirect 0.4 mg/dL Normal [facility] Comment on above: Performed By: #### L IPASE, PT, CBC, PTT, HEPATIC, BMP #### [facility] [address] Bilirubin.indirect [Mass/Vol] 0.00 mg/dL Low 0.03-0.18 [facility] Comment on above: Result Comment: If t he DBIL is less than 0.1, IBIL is not able to be calculated. Performed By: #### L IPASE, PT, CBC, PTT, HEPATIC, BMP #### [facility] [address] Globulin (S) [Mass/Vol] 2.5 g/dL Normal [facility] Comment on above: Performed By: #### L IPASE, PT, CBC, PTT, HEPATIC, BMP #### [facility] [address] Protein [Mass/Vol] 7.3 g/dL Normal 6.4-8.9 [facility] Comment on above: Performed By: #### L IPASE, PT, CBC, PTT, HEPATIC, BMP #### [facility] [address] INR in Platelet poor plasma by Coagulation assayOrdered By: Ne Carrizales on 08-01-2023 INR Coag (PPP) [Relative time] 1.1 {INR} [facility] Comment on above: INR Therapeutic Rang e A) Pre- and Peroperative OAT started two weeks before surgery. NOT HIP SURGERY: 1.5 - 2.5 HIP SURGERY: 2 - 3B) Primary and secondary prevention of venous THROMBOSIS: 2 - 3C) Active venous thrombosis, pulmonary embolismand prevention of recurrent venous thrombosis: 2 - 3D) Prevention of arterial thromboembolismincluding patients with mechanical heart valves: 3 - 4.5 Ketones Auto test strip (U) [Mass/Vol]Ordered By: Ne Carrizales on 08-01-2023 Ketones (U) [Mass/Vol] Negative Negative Fi [facility] Leukocytes [#/volume] correc surjit for nucleated erythrocytes in Blood by Automated counOrdered By: Ne Carrizales on 08-01-2023 WBC corrected for nucl RBC Auto (Bld) [#/Vol] 11.3 10*3/uL 4.1-10.5 [facility] Lipaseon 08-01-2023 Lipase [Catalytic activity/Vol] 46.0 U/L Normal 11.0-82.0 [facility] Comment on above: Result Comment: PERF ORMED BY: [place] [id number] PATHOLOGIST RESEARCH QUALITY ASSURANCE SPECIALIST BIANKA BECKER M.D. Performed By: #### B IOFIRECOVNOTDE, RESP PANEL UPP. #### [address] Lipase [Enzymatic activity/v olume] in Serum or PlasmaOrdered By: Ne Carrizales on 08-01-2023 Lipase [Catalytic activity/Vol] 46.0 U/L 11.0-82.0 [facility] Lymphocytes Auto (Bld) [#/Vo l]Ordered By: Ne Carrizales on 08-01-2023 Lymphocytes (Bld) [#/Vol] 2.5 10*3/uL 1.00-4.8 [facility] Lymphocytes/100 WBC Auto (Bl d)Ordered By: Ne Carrizales on 08-01-2023 Lymphocytes/100 WBC (Bld) 22.5 % . [facility] MCH Auto (RBC) [Entitic mass ]Ordered By: Ne Carrizales on 08-01-2023 MCH (RBC) [Entitic mass] 28.2 pg 27.5-35.2 [facility] MCHC Auto (RBC) [Mass/Vol]Or dered By: Ne Carrizales on 08-01-2023 MCHC (RBC) [Mass/Vol] 34.2 g/dL 32.5-35.6 [facility] MCV Auto (RBC) [Entitic vol] Ordered By: Ne Carrizales on 08-01-2023 MCV (RBC) [Entitic vol] 82.5 fL 83.5-101 [facility] Monocyte distribution width [Entitic volume] in Blood by AutomatedOrdered By: Ne Carrizales on 08-01-2023 Monocyte distribution width Auto (Bld) [Entitic vol] 16.48 % 0.00-20.00 [facility] Monocytes Auto (Bld) [#/Vol] Ordered By: Ne Carrizales on 08-01-2023 Monocytes (Bld) [#/Vol] 0.7 10*3/uL 0.0-0.8 [facility] Monocytes/100 WBC Auto (Bld) Ordered By: Ne Carrizales on 08-01-2023 Monocytes/100 WBC (Bld) 6.4 % . [facility] Neutrophils Auto (Bld) [#/Vo l]Ordered By: Ne Carrizales on 08-01-2023 Neutrophils (Bld) [#/Vol] 7.5 10*3/uL 1.8-7.7 [facility] Neutrophils/100 WBC Auto (Bl d)Ordered By: Ne Carrizales on 08-01-2023 Neutrophils/100 WBC (Bld) 66.9 % . [facility] Nitrite Test strip Ql (U)Ord ered By: Ne Carrizales on 08-01-2023 Nitrite Ql (U) Negative Negative [facility] No Panel InformationOrdered By: Ne Carrizales on 08-01-2023 Estimated GFR (CKD-EPI) > 60.0 mL/Min [facility] Creatinine Clearance (Chem 104.47 [facility] Nucleated erythrocytes [Pres ence] in Blood by Automated countOrdered By: Ne Carrizales on 08-01-2023 Nucleated RBC Auto Ql (Bld) 0.3 /100{WBC} 0-0.5 [facility] Partial Thromboplastin Timeo n 08-01-2023 aPTT Coag (Bld) [Time] 33.2 s Normal 25.1-36.5 [facility] Comment on above: Result Comment: A he matocrit value greater than 55% may lead to inaccurate results in coagulation testing. Patients having hematocrit values >55% require a special collection tube for coagulation studies. Please contact the laboratory at [phone] for redraw instructions. PERFORMED BY: [facility] [address] [id number] PATHOLOGIST RESEARCH QUALITY ASSURANCE SPECIALIST BIANKA BECKER M.D. Performed By: #### B IOFIRECOVNOTDE, RESP PANEL UPP. #### [facility] [address] Platelet mean volume Auto (B ld) [Entitic vol]Ordered By: Ne Carrizales on 08-01-2023 Platelet mean volume (Bld) [Entitic vol] 9.3 fL 6.6-10.1 [facility] Platelets Auto (Bld) [#/Vol] Ordered By: Ne Carrizales on 08-01-2023 Platelets (Bld) [#/Vol] 242 10*3/uL 150-450 [facility] Potassium [Moles/volume] in Serum or PlasmaOrdered By: Ne Carrizales on 08-01-2023 Potassium [Moles/Vol] 3.9 mmol/L 3.5-5.1 [facility] Protein Auto test strip (U) [Mass/Vol]Ordered By: Ne Carrizales on 08-01-2023 Protein (U) [Mass/Vol] Negative Negative [facility] Protein [Mass/volume] in Ser um or PlasmaOrdered By: Ne Carrizales on 08-01-2023 Protein [Mass/Vol] 7.3 g/dL 6.4-8.9 [facility] Prothrombin Time INRon 08-01 INR Coag (PPP) [Relative time] 1.1 {INR} Normal [facility] Comment on above: Result Comment: INR Therapeutic Range A) Pre- and Peroperative OAT started two weeks before surgery. NOT HIP SURGERY: 1.5 - 2.5 HIP SURGERY: 2 - 3 B) Primary and secondary prevention of venous THROMBOSIS: 2 - 3 C) Active venous thrombosis, pulmonary embolism and prevention of recurrent venous thrombosis: 2 - 3 D) Prevention of arterial thromboembolism including patients with mechanical heart valves: 3 - 4.5 Performed By: #### B IOFIRECOVNOTDE, RESP PANEL UPP. #### [facility] [address] [place] [address] [facility] PT Coag (PPP) [Time] 12.5 s Normal 9.0-12.9 [facility] Comment on above: Result Comment: A he matocrit value greater than 55% may lead to inaccurate results in coagulation testing. Patients having hematocrit values >55% require a special collection tube for coagulation studies. Please contact the laboratory at [phone] for redraw instructions. Performed By: #### B IOFIRECOVNOTDE, RESP PANEL UPP. #### [facility] [address] [place] [id number] [facility] Prothrombin time (PT)Ordered By: Ne Carrizales on 08-01-2023 PT Coag (PPP) [Time] 12.5 s 9.0-12.9 [facility] Comment on above: A hematocrit value g reater than 55% may lead to inaccurate results in coagulation testing. Patients having hematocrit values >55% require a special collection tube for coagulation studies. Please contact the laboratory at [phone] for redraw instructions. RBC Auto (Bld) [#/Vol]Ordere d By: Ne Carrizales on 08-01-2023 RBC (Bld) [#/Vol] 4.86 10*6/uL 3.90-5.60 [facility] Serum or plasma albumin/glob ulin mass ratioOrdered By: Ne Carrizales on 08-01-2023 Albumin/Globulin [Mass ratio] 1.9 {ratio} [facility] Serum or plasma anion gap de terminationOrdered By: Ne Carrizales on 08-01-2023 Anion gap [Moles/Vol] 11.5 mmol/L 6.0-15.0 [facility] Serum or plasma non-glucuron idated bilirubin measurement (mass/volume)Ordered By: Ne Carrizales on 08-01-2023 Bilirubin.indirect [Mass/Vol] 0.4 mg/dL [facility] Sodium [Moles/volume] in Ser um or PlasmaOrdered By: Nejohn Carrizales on 08-01-2023 Sodium [Moles/Vol] 141 mmol/L 136-145 [facility] Specific gravity Auto test s trip (U) [Rel density]Ordered By: Ne Carrizales on 08-01-2023 Specific gravity (U) [Rel density] 1.013 1.001-1.030 [facility] Urea nitrogen [Mass/volume] in Serum or PlasmaOrdered By: Ne Carrizales on 08-01-2023 Urea nitrogen [Mass/Vol] 18 mg/dL 7- [facility] Urinalysison 08-01-2023 Appearance (U) Clear Normal Clear [facility] Comment on above: Order Comment: Name Collection Type:: Clean-Voided Midstream Performed By: #### U A #### [facility] [address] [place] [address] [place] Bilirubin,Urine Negative Normal Negative [facility] Comment on above: Order Comment: Name Collection Type:: Clean-Voided Midstream Performed By: #### U A #### [facility] [address] [place] [address] [place] Color (U) Yellow Normal Yellow [facility] Comment on above: Order Comment: Name Collection Type:: Clean-Voided Midstream Performed By: #### U A #### [facility] [address] [place] [address] [place] Glucose Ql (U) Normal Normal Normal [facility] Comment on above: Order Comment: Name Collection Type:: Clean-Voided Midstream Performed By: #### U A #### [facility] [address] [place], [place] [id number] [place] Ketones Ql (U) Negative Normal Negative [facility] Comment on above: Order Comment: Name Collection Type:: Clean-Voided Midstream Performed By: #### U A #### [facility] [address] [place] [address] [place] Leukocyte esterase Test strip Ql (U) Negative Normal Negative [facility] Comment on above: Order Comment: Name Collection Type:: Clean-Voided Midstream Performed By: #### U A #### [facility] [address] [place] [address] [place] Nitrite,Urine Negative Normal Negative [facility] Comment on above: Order Comment: Name Collection Type:: Clean-Voided Midstream Performed By: #### U A #### [address] Occult Blood,Urine Negative Normal Negative [facility] Comment on above: Order Comment: Name Collection Type:: Clean-Voided Midstream Result Comment: PERF ORMED BY: [place] [id number] PATHOLOGIST RESEARCH QUALITY ASSURANCE SPECIALIST BIANKA BECKER M.D. Performed By: #### U A #### [address] pH (U) 6.5 [pH] Normal 5.0-9.0 [facility] Comment on above: Order Comment: Name Collection Type:: Clean-Voided Midstream Performed By: #### U A #### [place] [address] [place] Protein,Urine Negative Normal Negative [facility] Comment on above: Order Comment: Name Collection Type:: Clean-Voided Midstream Performed By: #### U A #### [address] Specificy Justin,Urine 1.013 Normal 1.001-1.030 [facility] Comment on above: Order Comment: Name Collection Type:: Clean-Voided Midstream Performed By: #### U A #### [facility] [address] [place] [address] [place] Urobilinogen,Urine Normal Normal Normal [facility] Comment on above: Order Comment: Name Collection Type:: Clean-Voided Midstream Performed By: #### U A #### [address] Urine clarity by refractomet ry automatedOrdered By: Ne Carrizales on 08-01-2023 Clarity Refractometry automated (U) Clear Clear [facility] Urine glucose measurement by automated test strip (mass/volume)Ordered By: Ne Carrizales on 08-01-2023 Glucose Auto test strip (U) [Mass/Vol] Normal mg/dL Normal [facility] Urine hemoglobin detection b y automated test stripOrdered By: Ne Carrizales on 08-01-2023 Hemoglobin Auto test strip Ql (U) Negative Negative [facility] Urine leukocyte esterase det ection by automated test stripOrdered By: Ne Carrizales on 08-01-2023 Leukocyte esterase Auto test strip Ql (U) Negative Negative [facility] Urobilinogen Auto test strip (U) [Mass/Vol]Ordered By: Ne Carrizales on 08-01-2023 Urobilinogen (U) [Mass/Vol] Normal mg/dL Normal [facility] WBC Auto (Bld) [#/Vol]Ordere d By: Ne Carrizales on 08-01-2023 WBC (Bld) [#/Vol] 11.3 10*3/uL 4.1-10.5 [facility] pH Auto test strip (U)Ordere d By: Ne Carrizales on 08-01-2023 pH (U) 6.5 [pH] 5.0-9.0 [facility] Alanine aminotransferase [En zymatic activity/volume] in Serum or PlasmaOrdered By: Bimal Epps on 06-04-2023 ALT [Catalytic activity/Vol] 61 U/L 7-52 [facility] Albumin [Mass/volume] in Ser um or Plasma by Bromocresol green (BCG) dye binding methoOrdered By: Bimal Epps on 06-04-2023 Albumin BCG dye [Mass/Vol] 4.9 g/dL 3.5-5.7 [facility] Alkaline phosphatase [Enzyma tic activity/volume] in Serum or PlasmaOrdered By: Bimal Epps on 06-04-2023 ALP [Catalytic activity/Vol] 54 U/L 34-104 [facility] Amphetamine Screen Ql (U)Ord ered By: Bimal Epps on 06-04-2023 Amphetamines Ql (U) Negative Negative [facility] Aspartate aminotransferase [ Enzymatic activity/volume] in Serum or PlasmaOrdered By: Bimla Epps on 06-04-2023 AST [Catalytic activity/Vol] 37 U/L 13-39 [facility] Automated erythrocytes count in urine sediment (number/area)Ordered By: Bimal Epps on 06-04-2023 RBC Auto (Urine sed) [#/Area] 0-1 [HPF] 0-4 [facility] Automated leukocytes count i n urine sediment (number/area)Ordered By: Bimal Epps on 06-04-2023 WBC Auto (Urine sed) [#/Area] 0-1 [HPF] 0-4 [facility] Barbiturates [Presence] in U rine by Screen methodOrdered By: Bimal Epps on 06-04-2023 Barbiturates Screen Ql (U) Negative Negative [facility] Basophils Auto (Bld) [#/Vol] Ordered By: Bimal Epps on 06-04-2023 Basophils (Bld) [#/Vol] 0.1 10*3/uL 0.0-0.2 [facility] Basophils/100 WBC Auto (Bld) Ordered By: Bimal Epps on 06-04-2023 Basophils/100 WBC (Bld) 0.8 % . [facility] Benzodiazepines Screen Ql (U )Ordered By: Bimal Epps on 06-04-2023 Benzodiazepines Ql (U) Negative Negative [facility] Benzoylecgonine [Presence] i n Urine by Screen methodOrdered By: Bimal Epps on 06-04-2023 Benzoylecgonine Screen Ql (U) Negative Negative [facility] Bilirubin Test strip Ql (U)O rdered By: Bimal Epps on 06-04-2023 Bilirubin Ql (U) Negative Negative [facility] Bilirubin.total [Mass/volume ] in Serum or PlasmaOrdered By: Bimal Epps on 06-04-2023 Bilirubin [Mass/Vol] 0.4 mg/dL 0.3-1.0 [facility] Calcium [Mass/volume] in Ser um or PlasmaOrdered By: Bimal Epps on 06-04-2023 Calcium [Mass/Vol] 9.8 mg/dL 8.6-10.3 [facility] Cannabinoids [Presence] in U rine by Screen methodOrdered By: Bimal Epps on 06-04-2023 Cannabinoids Screen Ql (U) Negative Negative [facility] Comment on above: These are unconfirme d results and should not be used for legal purposes. Drug Cut-Off Concentration: AMPH 1000 ng/mL CODY 200 ng/mL MARY 200 ng/mL COCM 300 ng/mL OP 300 ng/mL PCP 25 ng/mL THC 20 ng/mL Carbon dioxide, total [Moles /volume] in Serum or PlasmaOrdered By: Bimal Epps on 06-04-2023 CO2 [Moles/Vol] 24.1 mmol/L 21.0-31.0 [facility] Chloride [Moles/volume] in S demi or PlasmaOrdered By: Bimal Epps on 06-04-2023 Chloride [Moles/Vol] 103 mmol/L 98-107 [facility] Color Auto (U)Ordered By: Bennie Epps on 06-04-2023 Color (U) Yellow Yellow [facility] Complete Blood Count Auto Di ffon 06-04-2023 Basophils (Bld) [#/Vol] 0.1 10*3/uL Normal 0.0-0.2 [facility] Comment on above: Result Comment: PERF ORMED BY: [place] [address] PATHOLOGIST RESEARCH QUALITY ASSURANCE SPECIALIST BIANKA BECKER M.D. Performed By: #### C MP, CBC, ETOH #### [place] [address] [place] Basophils/100 WBC (Bld) 0.8 % Normal . [facility] Comment on above: Performed By: #### C MP, CBC, ETOH #### [facility] [address] [place] [address] [place] Eosinophils (Bld) [#/Vol] 0.3 10*3/uL Normal 0.0-0.45 [facility] Comment on above: Performed By: #### C MP, CBC, ETOH #### [facility] [address] [place] [address] [place] Eosinophils/100 WBC (Bld) 4.3 % Normal . [facility] Comment on above: Performed By: #### C MP, CBC, ETOH #### [facility] [address] Erythrocyte distribution width (RBC) [Ratio] 13.9 % Normal 12.0-14.8 [facility] Comment on above: Performed By: #### C MP, CBC, ETOH #### [address] Hematocrit (Bld) [Volume fraction] 43.0 % Normal 38.8-50.0 [facility] Comment on above: Performed By: #### C MP, CBC, ETOH #### [address] Hemoglobin (Bld) [Mass/Vol] 14.9 g/dL Normal 13.0-17.0 [facility] Comment on above: Performed By: #### C MP, CBC, ETOH #### [address] Lymphocytes (Bld) [#/Vol] 1.6 10*3/uL Normal 1.00-4.8 [facility] Comment on above: Performed By: #### C MP, CBC, ETOH #### [address] Lymphocytes/100 WBC (Bld) 21.4 % Normal . [facility] Comment on above: Performed By: #### C MP, CBC, ETOH #### [address] MCH (RBC) [Entitic mass] 28.4 pg Normal 27.5-35.2 [facility] Comment on above: Performed By: #### C MP, CBC, ETOH #### [address] MCV (RBC) [Entitic vol] 81.8 fL Low 83.5-101 [facility] Comment on above: Performed By: #### C MP, CBC, ETOH #### [address] Mean Corpuscular HGB Conc 34.7 g/dL Normal 32.5-35.6 [facility] Comment on above: Performed By: #### C MP, CBC, ETOH #### [facility] [address] [place] [address] [place] Monocytes (Bld) [#/Vol] 0.8 10*3/uL Normal 0.0-0.8 [facility] Comment on above: Performed By: #### C MP, CBC, ETOH #### [facility] [address] [place] [address] [place] Monocytes/100 WBC (Bld) 19.74 % Normal 0.00-20.00 [facility] Comment on above: Performed By: #### C MP, CBC, ETOH #### [place] [address] [place] Monocytes/100 WBC (Bld) 10.8 % Normal . [facility] Comment on above: Performed By: #### C MP, CBC, ETOH #### [place] [address] [place] Neutrophils (Bld) [#/Vol] 4.7 10*3/uL Normal 1.8-7.7 [facility] Comment on above: Performed By: #### C MP, CBC, ETOH #### [place] [address] [place] Neutrophils/100 WBC (Bld) 62.7 % Normal . [facility] Comment on above: Performed By: #### C MP, CBC, ETOH #### [place] [address] [place] NRBC% 0.2 /100{WBC} Normal 0-0.5 [facility] Comment on above: Performed By: #### C MP, CBC, ETOH #### [place] [address] [place] Platelet mean volume (Bld) [Entitic vol] 9.5 fL Normal 6.6-10.1 [facility] Comment on above: Performed By: #### C MP, CBC, ETOH #### [place] [address] [place] Platelets (Bld) [#/Vol] 242 10*3/uL Normal 150-450 [facility] Comment on above: Performed By: #### C MP, CBC, ETOH #### [facility] [address] RBC (Bld) [#/Vol] 5.26 10*6/uL Normal 3.90-5.60 [facility] Comment on above: Performed By: #### C MP, CBC, ETOH #### [address] WBC (Bld) [#/Vol] 7.5 10*3/uL Normal 4.1-10.5 [facility] Comment on above: Performed By: #### C MP, CBC, ETOH #### [address] Comprehensive Metabolic Pane roseanne 06-04-2023 Albumin [Mass/Vol] 4.9 g/dL Normal 3.5-5.7 [facility] Comment on above: Performed By: #### C MP, CBC, ETOH #### [address] Albumin/Globulin [Mass ratio] 1.8 {ratio} Normal [facility] Comment on above: Performed By: #### C MP, CBC, ETOH #### [address] ALP [Catalytic activity/Vol] 54 U/L Normal 34-104 [facility] Comment on above: Performed By: #### C MP, CBC, ETOH #### [address] ALT [Catalytic activity/Vol] 61 U/L High 7-52 [facility] Comment on above: Performed By: #### C MP, CBC, ETOH #### [address] Anion gap [Moles/Vol] 15.6 mmol/L High 6.0-15.0 [facility] Comment on above: Performed By: #### C MP, CBC, ETOH #### [address] AST [Catalytic activity/Vol] 37 U/L Normal 13-39 [facility] Comment on above: Performed By: #### C MP, CBC, ETOH #### [facility] [address] [place] [address] [place] Bilirubin [Mass/Vol] 0.4 mg/dL Normal 0.3-1.0 [facility] Comment on above: Performed By: #### C MP, CBC, ETOH #### [facility] [address] [place] [address] [place] Calcium [Mass/Vol] 9.8 mg/dL Normal 8.6-10.3 [facility] Comment on above: Performed By: #### C MP, CBC, ETOH #### [facility] [address] [place] [address] [place] Chloride [Moles/Vol] 103 mmol/L Normal 98-107 [facility] Comment on above: Performed By: #### C MP, CBC, ETOH #### [facility] [address] CO2 [Moles/Vol] 24.1 mmol/L Normal 21.0-31.0 [facility] Comment on above: Performed By: #### C MP, CBC, ETOH #### [facility] [address] [place] [address] [place] Creatinine [Mass/Vol] 1.15 mg/dL Normal 0.70-1.30 [facility] Comment on above: Performed By: #### C MP, CBC, ETOH #### [facility] [address] [place] [address] [place] Creatinine Clr Calc Pharmacy 100.63 [facility] Comment on above: Result Comment: PERF ORMED BY: [place] [address] PATHOLOGIST RESEARCH QUALITY ASSURANCE SPECIALIST BIANKA BECKER M.D. Performed By: #### C MP, CBC, ETOH #### [place] [address] [place] GFR/1.73 sq M.predicted MDRD (S/P/Bld) [Vol rate/Area] mL/min/{1.73_m2} [facility] Comment on above: Performed By: #### C MP, CBC, ETOH #### [facility] [address] [place] [address] [place] Globulin (S) [Mass/Vol] 2.8 g/dL Normal [facility] Comment on above: Performed By: #### C MP, CBC, ETOH #### [facility] [address] [place] [address] [place] Glucose [Mass/Vol] 115 mg/dL High 70-100 [facility] Comment on above: Result Comment: [facility] Glucose Reference Range is dependent on time and content of last meal. Glucose of more than 200 mg/dL in a nonstressed, ambulatory subject supports the diagnosis of Diabetes Mellitus. ADA recommended reference range Performed By: #### C MP, CBC, ETOH #### [facility] [address] Potassium [Moles/Vol] 3.7 mmol/L Normal 3.5-5.1 [facility] Comment on above: Performed By: #### C MP, CBC, ETOH #### [facility] [address] [place] [address] [place] Protein [Mass/Vol] 7.7 g/dL Normal 6.4-8.9 [facility] Comment on above: Performed By: #### C MP, CBC, ETOH #### [facility] [address] [place] [address] [place] Sodium [Moles/Vol] 139 mmol/L Normal 136-145 [facility] Comment on above: Performed By: #### C MP, CBC, ETOH #### [facility] [address] [place] [address] [place] Urea nitrogen [Mass/Vol] 14 mg/dL Normal 7-25 [facility] Comment on above: Performed By: #### C MP, CBC, ETOH #### [facility] [address] [place] [address] [place] Creatinine [Mass/volume] in Serum or PlasmaOrdered By: Bimal Epps on 06-04-2023 Creatinine [Mass/Vol] 1.15 mg/dL 0.70-1.30 [facility] Dipstick and Microscopicon 1 Appearance (U) Clear Normal Clear [facility] Comment on above: Order Comment: Name Collection Type:: Clean-Voided Midstream Performed By: #### B IOFIRECOVNOTDE, RESP PANEL UPP. #### [facility] [address] [place] [address] Bacteria,Urine None Seen Normal None Seen [facility] Comment on above: Order Comment: Name Collection Type:: Clean-Voided Midstream Performed By: #### B IOFIRECOVNOTDE, RESP PANEL UPP. #### [place] [address] [place] Bilirubin,Urine Negative Normal Negative [facility] Comment on above: Order Comment: Name Collection Type:: Clean-Voided Midstream Performed By: #### B IOFIRECOVNOTDE, RESP PANEL UPP. #### [place] [address] [place] Color (U) Yellow Normal Yellow [facility] Comment on above: Order Comment: Name Collection Type:: Clean-Voided Midstream Performed By: #### B IOFIRECOVNOTDE, RESP PANEL UPP. #### [place] [address] [place] Glucose Ql (U) Normal Normal Normal [facility] Comment on above: Order Comment: Name Collection Type:: Clean-Voided Midstream Performed By: #### B IOFIRECOVNOTDE, RESP PANEL UPP. #### [place] [address] [place] Hyaline Casts,Urine 0-8 Normal 0-8 [facility] Comment on above: Order Comment: Name Collection Type:: Clean-Voided Midstream Result Comment: PERF ORMED BY: [place] [id number] PATHOLOGIST RESEARCH QUALITY ASSURANCE SPECIALIST BIANKA BECKER M.D. Performed By: #### B IOFIRECOVNOTDE, RESP PANEL UPP. #### [place] [address] [place] Ketones Ql (U) Negative Normal Negative [facility] Comment on above: Order Comment: Name Collection Type:: Clean-Voided Midstream Performed By: #### B IOFIRECOVNOTDE, RESP PANEL UPP. #### [address] Leukocyte esterase Test strip Ql (U) Negative Normal Negative [facility] Comment on above: Order Comment: Name Collection Type:: Clean-Voided Midstream Performed By: #### B IOFIRECOVNOTDE, RESP PANEL UPP. #### [address] Nitrite,Urine Negative Normal Negative [facility] Comment on above: Order Comment: Name Collection Type:: Clean-Voided Midstream Performed By: #### B IOFIRECOVNOTDE, RESP PANEL UPP. #### [address] Occult Blood,Urine Negative Normal Negative [facility] Comment on above: Order Comment: Name Collection Type:: Clean-Voided Midstream Result Comment: PERF ORMED BY: [place] [address] PATHOLOGIST RESEARCH QUALITY ASSURANCE SPECIALIST BIANKA BECKER M.D. Performed By: #### B IOFIRECOVNOTDE, RESP PANEL UPP. #### [address] pH (U) 5.5 [pH] Normal 5.0-9.0 [facility] Comment on above: Order Comment: Name Collection Type:: Clean-Voided Midstream Performed By: #### B IOFIRECOVNOTDE, RESP PANEL UPP. #### [address] Protein (U) [Mass/Vol] 300 mg/dL High Negative [facility] Comment on above: Order Comment: Name Collection Type:: Clean-Voided Midstream Performed By: #### B IOFIRECOVNOTDE, RESP PANEL UPP. #### [address] RBC LM.HPF (Urine sed) [#/Area] 0 /[HPF] Normal 0-4 [facility] Comment on above: Order Comment: Name Collection Type:: Clean-Voided Midstream Performed By: #### B IOFIRECOVNOTDE, RESP PANEL UPP. #### [address] Specificy Justin,Urine 1.037 High 1.001-1.030 [facility] Comment on above: Order Comment: Name Collection Type:: Clean-Voided Midstream Performed By: #### B IOFIRECOVNOTDE, RESP PANEL UPP. #### [address] Squamous Epithelial Cell,Urine None Seen Normal 0-2 [facility] Comment on above: Order Comment: Name Collection Type:: Clean-Voided Midstream Performed By: #### B IOFIRECOVNOTDE, RESP PANEL UPP. #### [address] Urobilinogen,Urine Normal Normal Normal [facility] Comment on above: Order Comment: Name Collection Type:: Clean-Voided Midstream Performed By: #### B IOFIRECOVNOTDE, RESP PANEL UPP. #### [address] WBC LM.HPF (Urine sed) [#/Area] 0 /[HPF] Normal 0-4 [facility] Comment on above: Order Comment: Name Collection Type:: Clean-Voided Midstream Performed By: #### B IOFIRECOVNOTDE, RESP PANEL UPP. #### [place] [address] [place] Drug Screen,Urineon 10-10-20 23 Amphetamine Screen,Urine Negative Normal Negative [facility] Comment on above: Performed By: #### B IOFIRECOVNOTDE, RESP PANEL UPP. #### [address] Barbiturate Screen,Urine Negative Normal Negative [facility] Comment on above: Performed By: #### B IOFIRECOVNOTDE, RESP PANEL UPP. #### [address] Benzodiazepines Screen,Urine Negative Normal Negative [facility] Comment on above: Performed By: #### B IOFIRECOVNOTDE, RESP PANEL UPP. #### [address] Cannabinoid Screen,Urine Negative Normal Negative [facility] Comment on above: Result Comment: Thes e are unconfirmed results and should not be used for legal purposes. Drug Cut-Off Concentration: AMPH 1000 ng/mL CODY 200 ng/mL MARY 200 ng/mL COCM 300 ng/mL OP 300 ng/mL PCP 25 ng/mL THC 20 ng/mL PERFORMED BY: [place] [address] PATHOLOGIST RESEARCH QUALITY ASSURANCE SPECIALIST BIANKA BECKER M.D. Performed By: #### B IOFIRECOVNOTDE, RESP PANEL UPP. #### [address] Cocaine Screen,Urine Negative Normal Negative [facility] Comment on above: Performed By: #### B IOFIRECOVNOTDE, RESP PANEL UPP. #### [address] Opiate Screen,Urine Negative Normal Negative [facility] Comment on above: Performed By: #### B IOFIRECOVNOTDE, RESP PANEL UPP. #### [address] Phencyclidine Screen,Urine Negative Normal Negative [facility] Comment on above: Performed By: #### B IOFIRECOVNOTDE, RESP PANEL UPP. #### [place] [address] [place] Eosinophils Auto (Bld) [#/Vo l]Ordered By: Bimal Epps on 06-04-2023 Eosinophils (Bld) [#/Vol] 0.3 10*3/uL 0.0-0.45 [facility] Eosinophils/100 WBC Auto (Bl d)Ordered By: Bimal Epps on 06-04-2023 Eosinophils/100 WBC (Bld) 4.3 % . [facility] Erythrocyte distribution wid th Auto (RBC) [Ratio]Ordered By: Bimal Epps on 06-04-2023 Erythrocyte distribution width (RBC) [Ratio] 13.9 % 12.0-14.8 [facility] Ethanol [Mass/volume] in Ser um or PlasmaOrdered By: Bimal Epps on 06-04-2023 Ethanol [Mass/Vol] mg/dL [facility] Ethanol [Mass/Vol] TNP [facility] Comment on above: Test not performed Ethyl Alcohol Profileon 05-26 Ethanol [Mass/Vol] mg/dL Normal [facility] Comment on above: Performed By: #### C MP, CBC, ETOH #### [facility] [address] Percent Ethanol Not performed Normal [facility] Comment on above: Result Comment: PERF ORMED BY: [address] [place] [address] PATHOLOGIST RESEARCH QUALITY ASSURANCE SPECIALIST BIANKA BECKER M.D. Performed By: #### C MP, CBC, ETOH #### [facility] [address] Globulin Calc (S) [Mass/Vol] Ordered By: Bimal Epps on 06-04-2023 Globulin (S) [Mass/Vol] 2.8 g/dL [facility] Glucose [Mass/volume] in Ser um or PlasmaOrdered By: Bimal Epps on 06-04-2023 Glucose [Mass/Vol] 115 mg/dL 70-100 [facility] Comment on above: ADA recommended refe rence rangeRandom Glucose Reference Range is dependent on time and content of last meal. Glucose of more than 200 mg/dL in a nonstressed, ambulatory subject supports the diagnosis of Diabetes Mellitus. Hematocrit Auto (Bld) [Volum e fraction]Ordered By: Bimal Epps on 06-04-2023 Hematocrit (Bld) [Volume fraction] 43.0 % 38.8-50.0 [facility] Hemoglobin [Mass/volume] in BloodOrdered By: Bimal Epps on 06-04-2023 Hemoglobin (Bld) [Mass/Vol] 14.9 g/dL 13.0-17.0 [facility] Ketones Auto test strip (U) [Mass/Vol]Ordered By: Bimal Epps on 06-04-2023 Ketones (U) [Mass/Vol] Negative Negative Fi [facility] - UrinalysisOrder ed By: Bimal Epps on 06-04-2023 Hyaline casts LM Ql (Urine sed) 0-8 [LPF] 0-8 [facility] Leukocytes [#/volume] correc surjit for nucleated erythrocytes in Blood by Automated counOrdered By: Bimal Epps on 06-04-2023 WBC corrected for nucl RBC Auto (Bld) [#/Vol] 7.5 10*3/uL 4.1-10.5 [facility] Lymphocytes Auto (Bld) [#/Vo l]Ordered By: Bimal Epps on 06-04-2023 Lymphocytes (Bld) [#/Vol] 1.6 10*3/uL 1.00-4.8 [facility] Lymphocytes/100 WBC Auto (Bl d)Ordered By: Bimal Epps on 06-04-2023 Lymphocytes/100 WBC (Bld) 21.4 % . [facility] MCH Auto (RBC) [Entitic mass ]Ordered By: Bimal Epps on 06-04-2023 MCH (RBC) [Entitic mass] 28.4 pg 27.5-35.2 [facility] MCHC Auto (RBC) [Mass/Vol]Or dered By: Bmial Epps on 06-04-2023 MCHC (RBC) [Mass/Vol] 34.7 g/dL 32.5-35.6 [facility] MCV Auto (RBC) [Entitic vol] Ordered By: Bimal Epps on 06-04-2023 MCV (RBC) [Entitic vol] 81.8 fL 83.5-101 [facility] Monocyte distribution width [Entitic volume] in Blood by AutomatedOrdered By: Bimal Epps on 06-04-2023 Monocyte distribution width Auto (Bld) [Entitic vol] 19.74 % 0.00-20.00 [facility] Monocytes Auto (Bld) [#/Vol] Ordered By: Bimal Epps on 06-04-2023 Monocytes (Bld) [#/Vol] 0.8 10*3/uL 0.0-0.8 [facility] Monocytes/100 WBC Auto (Bld) Ordered By: Bimal Epps on 06-04-2023 Monocytes/100 WBC (Bld) 10.8 % . [facility] Neutrophils Auto (Bld) [#/Vo l]Ordered By: Bimal Epps on 06-04-2023 Neutrophils (Bld) [#/Vol] 4.7 10*3/uL 1.8-7.7 [facility] Neutrophils/100 WBC Auto (Bl d)Ordered By: Bimal Epps on 06-04-2023 Neutrophils/100 WBC (Bld) 62.7 % . [facility] Nitrite Test strip Ql (U)Ord ered By: Bimal Epps on 06-04-2023 Nitrite Ql (U) Negative Negative [facility] No Panel InformationOrdered By: Bimal Epps on 06-04-2023 Estimated GFR (CKD-EPI) > 60.0 mL/Min [facility] Creatinine Clearance (Chem 100.63 [facility] Nucleated erythrocytes [Pres ence] in Blood by Automated countOrdered By: Bimal Epps on 06-04-2023 Nucleated RBC Auto Ql (Bld) 0.2 /100{WBC} 0-0.5 [facility] Opiates [Presence] in Urine by Screen methodOrdered By: Bimal Epps on 06-04-2023 Opiates Screen Ql (U) Negative Negative [facility] Phencyclidine Screen Ql (U)O rdered By: Bimal Epps on 06-04-2023 Phencyclidine Ql (U) Negative Negative [facility] Platelet mean volume Auto (B ld) [Entitic vol]Ordered By: Bimal Epps on 06-04-2023 Platelet mean volume (Bld) [Entitic vol] 9.5 fL 6.6-10.1 [facility] Platelets Auto (Bld) [#/Vol] Ordered By: Bimal Epps on 06-04-2023 Platelets (Bld) [#/Vol] 242 10*3/uL 150-450 [facility] Potassium [Moles/volume] in Serum or PlasmaOrdered By: Bimal Epps on 06-04-2023 Potassium [Moles/Vol] 3.7 mmol/L 3.5-5.1 [facility] Protein Auto test strip (U) [Mass/Vol]Ordered By: Bimal Epps on 06-04-2023 Protein (U) [Mass/Vol] 300 mg/dL Negative Fi [facility] Protein [Mass/volume] in Ser um or PlasmaOrdered By: Bimal Epps on 06-04-2023 Protein [Mass/Vol] 7.7 g/dL 6.4-8.9 [facility] RBC Auto (Bld) [#/Vol]Ordere d By: Bimal Epps on 06-04-2023 RBC (Bld) [#/Vol] 5.26 10*6/uL 3.90-5.60 [facility] Serum or plasma albumin/glob ulin mass ratioOrdered By: Bimal Epps on 06-04-2023 Albumin/Globulin [Mass ratio] 1.8 {ratio} [facility] Serum or plasma anion gap de terminationOrdered By: Bimal Epps on 06-04-2023 Anion gap [Moles/Vol] 15.6 mmol/L 6.0-15.0 [facility] Sodium [Moles/volume] in Ser um or PlasmaOrdered By: Bimal Epps on 06-04-2023 Sodium [Moles/Vol] 139 mmol/L 136-145 [facility] Specific gravity Auto test s trip (U) [Rel density]Ordered By: Bimal Epps on 06-04-2023 Specific gravity (U) [Rel density] 1.037 1.001-1.030 [facility] Squamous epithelial cells de tection in urine sediment by light microscopyOrdered By: Bimal Epps on 06-04-2023 Epithelial cells.squamous LM Ql (Urine sed) None seen [HPF] 0-2 [facility] Urea nitrogen [Mass/volume] in Serum or PlasmaOrdered By: Bimal Epps on 06-04-2023 Urea nitrogen [Mass/Vol] 14 mg/dL 7-25 [facility] Urine bacteria detection by automated methodOrdered By: Bimal Epps on 06-04-2023 Bacteria Auto Ql (U) None seen None Seen [facility] Urine clarity by refractomet ry automatedOrdered By: Bimal Epps on 06-04-2023 Clarity Refractometry automated (U) Clear Clear [facility] Urine glucose measurement by automated test strip (mass/volume)Ordered By: Bimal Epps on 06-04-2023 Glucose Auto test strip (U) [Mass/Vol] Normal mg/dL Normal [facility] Urine hemoglobin detection b y automated test stripOrdered By: Bimal Epps on 06-04-2023 Hemoglobin Auto test strip Ql (U) Negative Negative [facility] Urine leukocyte esterase det ection by automated test stripOrdered By: Bimal Epps on 06-04-2023 Leukocyte esterase Auto test strip Ql (U) Negative Negative [facility] Urobilinogen Auto test strip (U) [Mass/Vol]Ordered By: Bimal Epps on 06-04-2023 Urobilinogen (U) [Mass/Vol] Normal mg/dL Normal [facility] WBC Auto (Bld) [#/Vol]Ordere d By: Bimal Epps on 06-04-2023 WBC (Bld) [#/Vol] 7.5 10*3/uL 4.1-10.5 [facility] pH Auto test strip (U)Ordere d By: Bimal Epps on 06-04-2023 pH (U) 5.5 [pH] 5.0-9.0 [facility] BioFire Not Detectedon 06-03 BioFire Not Detected Not detected Normal Not Detecte [facility] Comment on above: Result Comment: This is a duplicate RP2.1 COVID (PCR) result to be used for statistical tracking purpose only. PERFORMED BY: [place] [id number] PATHOLOGIST RESEARCH QUALITY ASSURANCE SPECIALIST BIANKA BECKER M.D. Performed By: #### B IOFIRECOVNOTDE, RESP PANEL UPP. #### [facility] [address] COVID-19 Detected/Not Detect edOrdered By: Denise Mcbride on 06-03-2023 SARS-CoV-2 (COVID-19) RNA CORINA+non-probe Ql (Nph) Not detected Not Detecte [facility] Comment on above: This is a duplicate RP2.1 COVID (PCR) result to be used for statistical tracking purpose only. Respiratory (Upper) Panel, P CRon 06-03-2023 Respiratory (Upper) Panel, PCR Adenovirus Not detected Bordetella parapertussis Not detected Chlamydia pneumoniae Not detected Coronavirus 229E Not detected Coronavirus HKU1 Not detected Coronavirus NL63 Not detected Coronavirus OC43 Not detected Influenza A Not detected Influenza B Not detected Human Metapneumovirus Not detected Mycoplasma pneumoniae Not detected Parainfluenza Virus 1 Not detected Parainfluenza Virus 2 Not detected Parainfluenza Virus 3 Not detected Parainfluenza Virus 4 Not detected Bordetella pertussis-ptxP Not detected Human Rhino/Enterovirus Not detected Resp. Syncytial Virus Detected COVID-19 Detected/Not Detected Not detected Blank Space -- FLUA TEST INCLUDES Influenza A tests for the following clinically FLUA TEST INCLUDES significant subtypes: FLUA TEST INCLUDES - Influenza A FLUA TEST INCLUDES - Influenza A H1 FLUA TEST INCLUDES - Influenza A H1 2009 FLUA TEST INCLUDES - Influenza A H3 Blank Space -- PERFORMED BY: [place] [address] PATHOLOGIST RESEARCH QUALITY ASSURANCE SPECIALIST BIANKA BECKER M[facility] Comment on above: Performed By: #### B IOFIRECOVNOTDE, RESP PANEL UPP. #### [address] Respiratory pathogens DNA an d RNA panel - Nasopharynx by CORINA with non-probe detectionOrdered By: Denise Mcbride on 06-03-2023 Respiratory pathogens DNA and RNA panel CORINA+non-probe (Nph) [facility] Respiratory pathogens DNA and RNA panel CORINA+non-probe (Nph) [facility] Physician Referralon 021 Physician Referral [id number] [facility] CBC AUTO DIFFon 08-20-2020 Basophils (Bld) [#/Vol] 0.0 103/ul Normal 0.0-0.1 [facility] Comment on above: Performed By: #### C BC #### [facility] [address] [place], [place] [id number] Patty Jia Basophils/100 WBC (Bld) 0.4 % Normal 0.2-2.0 [facility] Comment on above: Performed By: #### C BC #### [facility] [address] [place] [address] Patty Jia Eosinophils (Bld) [#/Vol] 0.2 103/ul Normal 0.0-0.7 [facility] Comment on above: Performed By: #### C BC #### [facility] [address] [place] [address] Patty Jia Eosinophils/100 WBC (Bld) 2.4 % Normal 0.9-7.0 [facility] Comment on above: Performed By: #### C BC #### [facility] [address] [place] [address] Patty Jia Erythrocyte distribution width (RBC) [Ratio] 12.5 % Normal 11.0-15.0 [facility] Comment on above: Performed By: #### C BC #### [facility] [address] [place], [place] [id number] Patty Jia Hematocrit (Bld) [Volume fraction] 40.7 % Critically low 42.0-54.0 [facility] Comment on above: Performed By: #### C BC #### [facility] [address] [place], [place] [id number] Patty Jia Hemoglobin (Bld) [Mass/Vol] 13.8 g/dL Critically low 14.0-18.0 [facility] Comment on above: Performed By: #### C BC #### [facility] [address] [place] [address] Patty Jia IG # 0.03 10e3/ul Normal 0.00-0.03 [facility] Comment on above: Performed By: #### C BC #### [facility] [address] [place] [address] Patty Jia IG % 0.3 % Normal 0.0-0.5 [facility] Comment on above: Performed By: #### C BC #### [facility] [address] [place] [address] Patty Jia Lymphocytes (Bld) [#/Vol] 2.3 103/ul Normal 1.2-3.8 [facility] Comment on above: Performed By: #### C BC #### [facility] [address] [place], [place] [id number] Pattyoneyda Ro Lymphocytes/100 WBC (Bld) 24.6 % Normal 20.5-60.0 [facility] Comment on above: Performed By: #### C BC #### [facility] [address] [place] [address] Pattyoneyda Ro MANUAL DIFF REQ NO Normal [facility] Comment on above: Performed By: #### C BC #### [facility] [address] [place], [place] [id number] Patty Jia MCH (RBC) [Entitic mass] 29.1 pg Normal 25.9-34.0 [facility] Comment on above: Performed By: #### C BC #### [facility] [address] [place], [place] [id number] Patty Jia MCHC (RBC) [Mass/Vol] 33.9 g/dL Normal 29.9-35.2 [facility] Comment on above: Performed By: #### C BC #### [facility] [address] [place] [address] Patty Jia MCV (RBC) [Entitic vol] 85.7 fL Normal 80.0-94.0 [facility] Comment on above: Performed By: #### C BC #### [facility] [address] [place], [place] [id number] Patty Jia Monocytes (Bld) [#/Vol] 0.9 103/ul Critically high 0.3-0.8 [facility] Comment on above: Performed By: #### C BC #### [facility] [address] [place], [place] [id number] Patty Jia Monocytes/100 WBC (Bld) 9.0 % Normal 1.7-12.0 [facility] Comment on above: Performed By: #### C BC #### [facility] [address] [id number] Patty Jia Neutrophils (Bld) [#/Vol] 6.0 103/ul Normal 1.4-6.5 [facility] Comment on above: Performed By: #### C BC #### [facility] [address] [place], [place] [id number] Patty Jia Neutrophils/100 WBC (Bld) 63.3 % Normal 43.0-75.0 [facility] Comment on above: Performed By: #### C BC #### [facility] [address] [place], [place] [id number] Patty Jia Platelet mean volume (Bld) [Entitic vol] 11.1 fL Normal 9.5-13.5 [facility] Comment on above: Performed By: #### C BC #### [facility] [address] [place], [place] [id number] Patty Jia Platelets (Bld) [#/Vol] 224 103/ul Normal 150-450 [facility] Comment on above: Performed By: #### C BC #### [facility] [address] [place], [place] [id number] Patty Jia RBC (Bld) [#/Vol] 4.75 106/ul Normal 4.70-6.10 [facility] Comment on above: Performed By: #### C BC #### [facility] [address] [place], [place] [id number] Patty Jia WBC (Bld) [#/Vol] 9.5 103/ul Normal 4.0-11.0 [facility] Comment on above: Performed By: #### C BC #### [facility] [address] [place], [place] [id number] Patty Jia CRPon 08-20-2020 CRP [Mass/Vol] 4.7 mg/dL Critically high <=1.0 [facility] Comment on above: Performed By: #### U PIERRE, CRP #### [facility] [address] [address] Patty Ro SED RATE WESTERGRENon 2019 SED RATE 14 mm/hr Normal <=15 [facility] Comment on above: Performed By: #### S EDR #### [facility] [address] [address] Patty Ro URIC ACID SERUMon 08-20-2020 Urate [Mass/Vol] 7.6 mg/dL Normal 3.5-8.5 [facility] Comment on above: Performed By: #### U PIERRE, CRP #### [facility] [address] [address] Patty Jia XR ANKLE RT MIN 3 VIEWSon XR ANKLE RT MIN 3 VIEWS EXAM: XR ANKLE RT MIN 3 VIEWS HISTORY: Pain of right ankle joint no known injury. COMPARISON: None. FINDINGS: 3 views of the right ankle were obtained. No acute fracture or dislocation. Mortise is congruent. Articular surfaces are smooth in contour. Soft tissue edema is noted around the ankle. IMPRESSION: Soft tissue edema without acute bony abnormality in the right ankle. Electronically authenticated by: TK MALLORY Date: 2020-08-20 07:55 Normal [facility] INFLUENZA A AND B AGon 10-07 INFLUBNEGH SEE BELOW Normal [facility] Comment on above: Result Comment: Nega tive for Flu B protein antigen. Infection due to Flu B cannot be ruled out. Flu B antigen in the sample may be below the detection limit of the test. Performed By: #### I NFLUAB #### [facility] [address] [place] [address] Pattyoneyda Ro INFLUENZA A AG Positive Normal NEGATIVE SEE COMMENT [facility] Comment on above: Performed By: #### I NFLUAB #### [facility] [address] [place] [address] Patty Jia INFLUENZA B AG Negative Normal NEGATIVE SEE COMMENT [facility] Comment on above: Performed By: #### I NFLUAB #### [facility] [address] [place] [address] Patty Jia INFLUPOSH SEE BELOW Normal [facility] Comment on above: Result Comment: NOTE : Live attenuated influenzae vaccine viruses can cause a positive result for a rapid influenza diagnostic test if administered up to 7 days prior to rapid testing. Performed By: #### I NFLUAB #### [facility] [address] [place], [place] [address] Patty Ro INTERNAL CONTROLS Within Normal Limits Normal Wi thin Normal Limits [facility] Comment on above: Performed By: #### I NFLUAB #### [facility] [address] [place], [place] [address] Patty Ro Vital Signs Date Time Vital Sign Value Performing Clinician Faci lity 08-01-2023 16:08-0500 Diastolic blood pressure 82 mm[Hg] DO Beena Villatoro (Clinic) Work Phone: [facility] 08-01-2023 16:08-0500 Heart rate 81 /min DO Beena Villatoro (Clinic) Work Phone: [facility] 08-01-2023 16:08-0500 Respiratory rate 20 /min DO Beena Villatoro (Clinic) Work Phone: [facility] 08-01-2023 16:08-0500 SaO2% (BldA) [Mass fraction] 98 % DO Beena Villatoro (Clinic) Work Phone: [facility] 08-01-2023 16:08-0500 Systolic blood pressure 161 mm[Hg] DO Beena Villatoro (Clinic) Work Phone: [facility] 08-01-2023 13:57-0500 Body height 170.18 cm DO Beena Villatoro (Clinic) Work Phone: [facility] 08-01-2023 13:57-0500 Body temperature 97.6 [degF] DO Beena Villatoro (Clinic) Work Phone: [facility] 08-01-2023 13:57-0500 Body weight 110 kg DO Beena Villatoro (Clinic) Work Phone: [facility] 06-04-2023 05:08-0400 Body height 170.18 cm DO Beena Villatoro (Clinic) Work Phone: [facility] 06-04-2023 05:08-0400 Body temperature 97.8 [degF] DO Beena Villatoro (Clinic) Work Phone: [facility] 06-04-2023 05:08-0400 Body weight 113.39 kg DO Beena Villatoro (Clinic) Work Phone: [facility] 06-04-2023 05:08-0400 Diastolic blood pressure 117 mm[Hg] DO Beena Villatoro (Clinic) Work Phone: [facility] 06-04-2023 05:08-0400 Heart rate 106 /min DO Beena Villatoro (Clinic) Work Phone: [facility] 06-04-2023 05:08-0400 Respiratory rate 26 /min DO Beena Villatoro (Clinic) Work Phone: [facility] 06-04-2023 05:08-0400 SaO2% (BldA) [Mass fraction] 95 % DO Beena Villatoro (Clinic) Work Phone: [facility] 06-04-2023 05:08-0400 Systolic blood pressure 156 mm[Hg] DO Beena Villatoro (Clinic) Work Phone: [facility] 06-03-2023 11:25-0400 Body height 167.64 cm DO Beena Villatoro (Clinic) Work Phone: [facility] 06-03-2023 11:25-0400 Body temperature 98.1 [degF] DO Beena Villatoro (Clinic) Work Phone: [facility] 06-03-2023 11:25-0400 Body weight 111.65 kg DO Beena Villatoro (Clinic) Work Phone: [facility] 06-03-2023 11:25-0400 Diastolic blood pressure 104 mm[Hg] DO Beena Villatoro (Clinic) Work Phone: [facility] 06-03-2023 11:25-0400 Heart rate 98 /min DO Beena Villatoro (Clinic) Work Phone: [facility] 06-03-2023 11:25-0400 Respiratory rate 18 /min DO Beena Villatoro (Clinic) Work Phone: [facility] 06-03-2023 11:25-0400 SaO2% (BldA) [Mass fraction] 98 % DO Beena Villatoro (Clinic) Work Phone: [facility] 06-03-2023 11:25-0400 Systolic blood pressure 164 mm[Hg] DO Beena Villatoro (Clinic) Work Phone: [facility] 03-27-2023 06:32-0400 Body height 170.18 cm DO Beena Villatoro (Clinic) Work Phone: [facility] 03-27-2023 06:32-0400 Body temperature 98 [degF] DO Beena Villatoro (Clinic) Work Phone: [facility] 03-27-2023 06:32-0400 Body weight 112.85 kg DO Beena Villatoro (Clinic) Work Phone: [facility] 03-27-2023 06:32-0400 Diastolic blood pressure 96 mm[Hg] DO Beena Villatoro (Clinic) Work Phone: [facility] 03-27-2023 06:32-0400 Heart rate 93 /min DO Beena Villatoro (Clinic) Work Phone: [facility] 03-27-2023 06:32-0400 Respiratory rate 20 /min DO Beena Villatoro (Clinic) Work Phone: [facility] 03-27-2023 06:32-0400 SaO2% (BldA) [Mass fraction] 94 % DO Beena Villatoro (Clinic) Work Phone: [facility] 03-27-2023 06:32-0400 Systolic blood pressure 153 mm[Hg] DO Beena Villatoro (Clinic) Work Phone: [facility] 12-28-2022 19:08-0400 Body height 170.18 cm DO Beena Villatoro (Clinic) Work Phone: [facility] 12-28-2022 19:08-0400 Body temperature 97.8 [degF] DO Beena Villatoro (Clinic) Work Phone: [facility] 12-28-2022 19:08-0400 Body weight 112.1 kg DO Beena Villatoro ([facility]) Work Phone: [facility] 12-28-2022 19:08-0400 Diastolic blood pressure 98 mm[Hg] DO Beena Villatoro (Clinic) Work Phone: [facility] 12-28-2022 19:08-0400 Heart rate 66 /min DO Beena Villatoro ([facility]) Work Phone: [facility] 12-28-2022 19:08-0400 Respiratory rate 20 /min DO Beena Villatoro (Clinic) Work Phone: [facility] 12-28-2022 19:08-0400 SaO2% (BldA) [Mass fraction] 95 % DO Beena Villatoro (Clinic) Work Phone: [facility] 12-28-2022 19:08-0400 Systolic blood pressure 140 mm[Hg] DO Beena Villatoro (Clinic) Work Phone: [facility] 05-18-2022 20:04-0400 Diastolic blood pressure 82 mm[Hg] DO Beena Villatoro (Clinic) Work Phone: [facility] 05-18-2022 20:04-0400 Heart rate 57 /min DO Beena Villatoro (Clinic) Work Phone: [facility] 05-18-2022 20:04-0400 Respiratory rate 17 /min DO Beena Villatoro (Clinic) Work Phone: [facility] 05-18-2022 20:04-0400 SaO2% (BldA) [Mass fraction] 98 % DO Beena Villatoro (Clinic) Work Phone: [facility] 05-18-2022 20:04-0400 Systolic blood pressure 136 mm[Hg] DO Beena Villatoro (Clinic) Work Phone: [facility] 05-18-2022 17:28-0400 Body height 170.18 cm DO Beena Villatoro (Clinic) Work Phone: [facility] 05-18-2022 17:28-0400 Body temperature 98.1 [degF] DO Beena Villatoro ([facility]) Work Phone: [facility] 05-18-2022 17:28-0400 Body weight 104.32 kg DO Beena Villatoro ([facility]) Work Phone: [facility] 04-14-2022 17:04-0400 Body height 170.18 cm DO Beena Villatoro ([facility]) Work Phone: [facility] 04-14-2022 17:04-0400 Body temperature 97.8 [degF] DO Beena Villatoro ([facility]) Work Phone: [facility] 04-14-2022 17:04-0400 Body weight 108.65 kg DO Beena Villatoro ([facility]) Work Phone: [facility] 04-14-2022 17:04-0400 Diastolic blood pressure 89 mm[Hg] DO Beena Villatoro (Clinic) Work Phone: [facility] 04-14-2022 17:04-0400 Heart rate 81 /min DO Beena Villatoro (Clinic) Work Phone: [facility] 04-14-2022 17:04-0400 Respiratory rate 20 /min DO Beena Villatoro (Clinic) Work Phone: [facility] 04-14-2022 17:04-0400 SaO2% (BldA) [Mass fraction] 96 % DO Beena Villatoro (Clinic) Work Phone: [facility] 04-14-2022 17:04-0400 Systolic blood pressure 144 mm[Hg] DO Beena Villatoro (Clinic) Work Phone: [facility] Encounters Encounter Date Encounter Type Care Provider Facility Start: 08-01-2023 End: 08-01-2023 Emergency department patient visit Ne Carrizales Facility:[facility] Start: 08-01-2023 End: 08-01-2023 Emergency department patient visit DO Beena Villatoro (Clinic) Work Phone: [facility] Work Phone: Start: 06-04-2023 End: 06-04-2023 Emergency department patient visit Raymundo Mendez Facility:[facility] Start: 06-04-2023 End: 06-04-2023 Emergency department patient visit DO Beena Villatoro (Clinic) Work Phone: [facility] Work Phone: Start: 06-03-2023 End: 06-03-2023 Emergency department patient visit Denise Mcbride Facility:[facility] Start: 06-03-2023 End: 06-03-2023 Emergency department patient visit DO Beena Villatoro (Clinic) Work Phone: [facility] Work Phone: Start: 03-27-2023 End: 03-27-2023 Emergency department patient visit Beena Villatoro (Clinic) Facility:[facility] Start: 03-27-2023 End: 03-27-2023 Emergency department patient visit DO Beena Villatoro (Clinic) Work Phone: [facility] Work Phone: Start: 12-28-2022 End: 12-28-2022 Emergency department patient visit Beena Villatoro (Clinic) Facility:[facility] Start: 12-28-2022 End: 12-28-2022 Emergency department patient visit DO Beena Villatoro (Clinic) Work Phone: [facility] Work Phone: Start: 05-18-2022 End: 05-18-2022 Emergency department patient visit DO Beena Villatoro ([facility]) Work Phone: [facility] Start: 04-14-2022 End: 04-14-2022 Emergency department patient visit DO Beena Villatoro ([facility]) Work Phone: [facility] Start: 08-20-2020 End: 08-20-2020 Patient encounter procedure BEN ASIF Facility:[facility] Start: 10-07-2019 End: 10-07-2019 Patient encounter procedure DOCTOR KEENA Facility: Procedures Date Procedure Procedure Detail Performing Clinician Start: 08-01-2023 CT of abdomen and pe lvis without contrast DO Beena Villatoro ([facility]) Work Phone: Start: 06-03-2023 Respiratory Panel (PCR) DO Beena Villatoro ([facility]) Work Phone: Plan of Treatment Date Care Activity Detail Author Patient Education [facility] Work Phone: Patient referral [facility] Work Phone: Payers Date Payer Category Payer Unknown [id number] 2022 Self-pay 1980 Unknown [id number] 1980 Unknown [id number] 1959 Unknown [id number] Unknown [id number] [id number] [id number] Unknown [id number] Unknown [id number] 2.16.8 [id number] Unknown [id number] [id number] [id number] Unknown [id number] 2.16.8 [id number] Social History Date Type Detail Facility Start: 05-18-2022 End: 08-01-2023 Tobacco smoking status NHIS Never smoked tobacco (finding) [facility] Start: 1980 Sex Assigned At Male F [facility] Evaluation note Note Date & Type Note Facility Evaluation note No assessment information availa ble [facility] Work Phone: Hospital Discharge instructions Note Date & Type Note Facility Hospital Discharge instructions Additional Instructions If your symptoms return/worsen or you develop any further concerns or symptoms please see your doctor or return to the emergency department immediately. 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 It also showed a suspected fatty liver with questionable masslike area involving the right lobe. Please follow-up with Dr. Villatoro as you plan to do Please return if any problems persist or worsen It is important that you call Dr. Villatoro's office for follow-up tomorrow as being discussed Tylenol or Naprosyn as needed for pain [facility] Work Phone: Summary Purpose Family History No Family History Records FoundNo Family History Records FoundNo Family History Records Found Advance Directives No Advanced Directives Records Found Advance Directive Response Recorded Date/ Time Advance Directives No April 14, 2022 5:10pm Advance Directive Response Recorded Date/ Time Advance Directives No April 14, 2022 4:10pm Chief Complaint and Reason for Visit Chief Complaint headache headache Chief Complaint headache Chief Complaint Headache Chief Complaint Headache feeling ill Chief Complaint Headache feeling ill unable to sleep Chief Complaint feeling ill unable to sleep lt side abd/lower back pain Additional Source Comments (unrecognized sect ion and content) No Status Records FoundNo Status Records FoundNo Status Records Found INFORMATION SOURCE (unrecogn ized section and content) DATE CREATED AUTHOR 08/25/2020 [facility] DATE CREATED AUTHOR AUTHOR'S ORGANIZ ATION 02/09/2021 Burgess Lito [facility] DATE CREATED AUTHOR AUTHOR'S ORGANIZ ATION 08/11/2023 [facility] Care Teams (unrecognized sec tion and content) Team Status: Inactive Member Role Status Dates Beena Villatoro (Clinic) , DO [facility] Primary Care Prov ider Active Florentin Bentley PA-C Emergency Provider Active Team Status: Inactive Member Role Status Dates Beena Villatoro (Clinic) , DO [facility] Primary Care Prov ider Active Syd Gallardo APRN Emergency Provider Active Team Status: Active Member Role Status Dates Beena Villatoro (Clinic) , DO [facility] Primary Care Prov ider Active Team Status: Inactive Member Role Status Dates Beena Villatoro (Clinic) , DO [facility] Primary Care Prov ider Active Mookie Berry , DO Emergency Provider Active Team Status: Inactive Member Role Status Dates Beena Villatoro (Clinic) , DO [facility] Primary Care Prov ider Active Rocky Novoa , DO Emergency Provider Active Team Status: Inactive Member Role Status Dates Beena Villatoro (Clinic) , DO [facility] Primary Care Prov ider Active Denise Mcbride , ION Emergency Provider Active Team Status: Inactive Member Role Status Dates Beena Villatoro (Clinic) , DO [facility] Primary Care Prov ider Active Raymundo Mendez , DO Emergency Provider Active Team Status: Inactive Member Role Status Dates Beena Villatoro (Clinic) , DO [facility] Primary Care Prov ider Active Ne Carrizales , ION Emergency Provider Active Goals (unrecognized section and content) Goals may be documented in a n alternate sectionGoals may be documented in an alternate sectionGoals may be documented in an alternate sectionGoals may be documented in an alternate sectionGoals may be documented in an alternate sectionGoals may be documented in an alternate section FOR RECORDS PERTAINING TO PATIENTS WHO ARE OR HAVE BEEN ENROLLED IN A CHEMICAL DEPENDENCY/SUBSTANCEABUSE PROGRAM, SOME INFORMATION MAY BE OMITTED. This clinical summary was aggregated from multiple sources. Caution should be exercised in using it in the provision of clinical care. This summary normalizes information from multiple sources, and as a consequence, information in this document may materially change the coding, format and clinical context of patient data. In addition, data may be omitted in some cases. CLINICAL DECISIONS SHOULD BE BASED ON THE PRIMARY CLINICAL RECORDS. [facility]. provides no warranty or guarantee of the accuracy or completeness of information in this document.
--- OUTSIDE RECORDS SUMMARY | 2025-05-02 19:00 | XMS_ITS | Clinical Summary ---
Author Organization [facility] Healthcare Address [address] [place] [address] Care Team Providers Care Marketing Analytics Analyst Name Role Phone Unavailable Primary Care Provider Unavailabl e Social History Tobacco Use Types Packs/Day Years Used Date Smoking Tobacco: Never Assessed Sex and Gender Information Value Date Recorded Sex Assigned at Not on file Legal Sex Male 9:44 PM EDT Gender Identity Not on file Sexual Orientation Not on file Last Filed Vital Signs Vital Sign Reading Time Taken Comments Blood Pressure 118/84 10/06/2022 12:00 PM EST Pulse - - Temperature - - Respiratory Rate - - Oxygen Saturation - - Inhaled Oxygen Concentration - - Weight 111 kg (245 lb 11.2 oz) 10/06/2022 12:00 PM EST Height 170.2 cm (5' 7 ) 10/06/2022 12:00 PM EST Body Mass Index 38.48 10/06/2022 12:00 PM EST Plan of Treatment Health Maintenance Due Date Last Done Comments Influenza Vaccine (#1) 2025 3, 05/06/2021, 08/04/2020, Additional history exists
--- OUTSIDE RECORDS SUMMARY | 2025-05-02 19:00 | XMS_ITS | Patient Health Record ---
Author Organization [facility] in [place] Address [address] [place] [address] Care Team Providers Care Plant Protection Supervisor Name Role Phone Lenore Nogueira Primary Care Provider Cleve Blair [phone] Allergies Allergen (clinical drug ingredient) Drug/Non Drug Allergy documented on EMR Reaction Allergy Type Onset Date Status Substance with serotonin re-uptake inhibitor mechanism of action (substance) SSRI's (uncoded) Worsen Symptoms Allergy Active Results Component Value Reference Range Notes XR wrist RT min 3V Reviewed date:10/15/2024 03:45:16 PM Interpretation: Performing Lab: Notes/Report: Source Facility: [place] [address] XRay Report Signed Patient: DELONTE FONG MR#: [id number] : 1980 Acct:[id number] Age/Sex: 44 / M ADM Date: 08/30/24 Loc: ER Attending Dr: Ordering Physician: Irasema Jacobs Date of Service: 08/30/24 Procedure(s): XR wrist RT min 3V Accession Number(s): [id number] cc: Irasema Jacobs; LENORE NOGUEIRA [place] [address] Patient Name: DELONTE FONG MRN: [id number] date: 1980 Sex: M Assigned Patient Location: ER Current Patient Location: Accession/Order Number: [id number] Exam Date: 08/30/2024 08:10 Report Date: 08/30/2024 21:24 At the request of: IRASEMA JACOBS Procedure: XR wrist RT min 3V EXAMINATION: XR wrist RT min 3V, , 08/30/2024 8:10 AM EST INDICATION: pain HISTORY: Ordering Provider Reason for Exam: pain Technologist Note: Additional: COMPARISON: None. TECHNIQUE: Right wrist x-ray: 3 view(s). FINDINGS: No acute fracture. Joint alignment is anatomic. Joint spaces are preserved. Soft tissues are within normal limits. XR/XR wrist RT min 3V IMPRESSION: No acute fracture or traumatic malalignment. Electronically authenticated by: FRANK WAHL Date: 08/30/2024 21:24 Dictated By: Frank Wahl M.D. Signed By: 08/30/242126 DD/ 23 TD/TT: International Trade Teacher: [place] [address] XRay Report Signed Patient: DOMENIC FONG MR#: [id number] : 1980 Acct:[id number] Age/Sex: 44 / M ADM Date: 08/30/24 Loc: ER Attending Dr: Ordering Physician: Irasema Jacobs Date of Service: 08/30/24 Procedure(s): XR wrist RT min 3V Accession Number(s): [id number] cc: Irasema Jacobs; LENORE NOGUEIRA [address] [address] Patient Name: DELONTE FONG MRN: [id number] date: 1980 Sex: M Assigned Patient Location: ER Current Patient Location: Accession/Order Numb er: [id number] Exam Date: 08/30/2024 08:10 Report Date: 08/30/2024 21:24 At the request of: IRASEMA JACOBS Procedure: XR wrist RT min 3V EXAMINATION: XR wris t RT min 3V, , 08/30/2024 8:10 AM EST INDICATION: pain HISTORY: Ordering Provider Re ason for Exam: pain Technologist Note: Additional: COMPARISON: None. TECHNIQUE: Right wri st x-ray: 3 view(s). FINDINGS: No acute fracture. J oint alignment is anatomic. Joint spaces are preserved. Soft tissues are wit hin normal limits. X R/XR wrist RT min 3V IMPRESSION: No acute fracture or traumatic malalignment. Electronically authe nticated by: FRANK WAHL Date: 08/30/2024 21:24 Dictated By: Frank Wahl M.D. Signed By: 08/30/242126 DD/ 23 TD/TT: International Trade Teacher: Reason For Referral No Information Medications Medication SIG (Take, Route, Frequency, Duration) [...] a day for 30 days 11/30/2024 Active Meclizine HCl 25 MG 1 tablet as needed O rally Q 6 hours 09/29/2024 Active Omeprazole 40 MG 1 capsule 30 minutes before morning meal Orally Once a day for 30 days 06/17/2023 Active Social History Tobacco Use: Social History Observation Description Date Details (start date - stop date) Never Smoker NA - NA Tobacco Use/Smoking Question Answer Notes Patient is a nonsmoker Alcohol Screen (Audit-C) Question Answer Notes Did you have a drink containing alcohol in the p ast year? No Points 0 Interpretation Negative AUDIT-C (Standard) Question Answer Notes Did you have a drink containing alcohol in the p ast year? No Points 0 Interpretation Negative Problems Problem Type SNOMED Code ICD Code Onset Dates Problem Status W/U Status Risk Notes Problem 25650662 Essential (primary) hypertension (I10) Active confirmed Problem 049541825 Dysphagia, unspecified (R13.10) Active confirmed Problem Hyperlipidemia (90949026) Hyperlipidemia (E78.5) Active confirmed Problem Anxiety (71889704) Anxiety (F41.9) Active confirmed Problem Arthritis (3422523) Arthritis (M19.90) Active confirmed Problem Insomnia (617462988) Insomnia (G47.00) Active confirmed Problem Migraine (35756134) Migraine (G43.909) Active confirmed Problem Pain of left knee region (finding) (817764516009124) Knee pain, left (M25.562) Active confirmed Problem Tension headache (944811545) Tension headache (G44.209) Active confirmed Problem Overweight (966871647) Over weight (E66.3) Active confirmed Problem Sciatica (33289179) Right sciatic nerve pain (M54.31) Active confirmed Vital Signs Heart Rate 79 /min 11/30/2024 Temperature 97.9 degrees Fahrenheit 11/30/2024 Oximetry 98 % 11/30/2024 Blood pressure diastolic 86 mm Hg 03/16/2025 Height 67 in 03/16/2025 Blood pressure systolic 138 mm Hg 03/16/2025 Weight 245.4 lbs 03/16/2025 BMI 38.43 kg/m2 03/16/2025 Encounters Encounter Location Date Provider Diagnosis [address] [place] [address] 10/13/2024 Lenore Mirlande Essential (primary) hypertension I10 and Frequent headaches R51.9 [facility] [address] [place] [address] 12/28/2024 Lenore Mirlande Right ankle pain M25.571 [facility] [address] [place] [address] 03/02/2025 Lenore Mirlande Acute back pain M54. 9 [facility] [address] [place] [address] 03/16/2025 Lenore Mirlande Migraine G43.909 [address] [place] [address] 06/05/2024 Lenore Mirlande Acrochordon L91.8 [facility] [address] [place] [address] 12/24/2024 Lenore Mirlande Migraine G43.909 [address] [place] [address] 01/01/2025 Lenore Mirlande Hyperlipidemia E78.5 and Vertigo R42 [facility] [address] [place] [address] 02/11/2025 Lenore Mirlande Migraine G43.909 and Right sciatic nerve pain M54.31 [facility] [address] [place] [address] 08/31/2024 Lenore Mirlande Right wrist pain M25.531 and Tension headache G44.209 [facility] [address] [place] [address] 09/14/2024 Lenore Mirlande Insomnia G47.00 [facility] [address] [place] [address] 09/29/2024 Cleve Hoy Acute non-recurrent sinusitis, unspecified location J01.90 and Nasal congestion R09.81 [facility] [address] [place] [address] 11/20/2024 Lenore Mirlande Right sciatic nerve pain M54.31 and Right foot pain M79.671 [facility] [address] [place] [address] 11/30/2024 Lenore Mirlande Cough R05.9 and Arthritis M19.90 [facility] [address] [place] [address] 12/31/2024 Lenore Mirlande Right ankle pain M25.571 ; Arthritis M19.90 and Hyperlipidemia E78.5 [facility] [address] [place] [address] 01/20/2025 Lenore Mirlande Right sciatic nerve pain M54.31 [facility] [address] [place] [address] 02/12/2025 Lenore Mirlande [facility] [address] [place] [address] 04/07/2025 Lenore Mirlande [facility] [address] [facility] [place] [address] 09/04/2024 Lenore Mirlande Right wrist pain M25.531 [facility] [address] [place] [address] 09/18/2024 Lenore Mirlande Right wrist pain M25.531 [facility] [address] [place] [address] 10/27/2024 Lenore Nogueira [facility] [address] [place] [address] 11/16/2024 Lenore Nogueira COVID-19 U07.1 [facility] [address] [place] [address] 12/28/2024 Lenore Nogueira Right sciatic nerve pain M54.31 [facility] [address] [place] [address] 12/28/2024 Lenore Nogueira [facility] [address] [place] [address] 05/18/2024 Cleve Hoy Right sciatic nerve pain M54.31 [facility] [address] [place] [address] 05/26/2024 Lenore Nogueira [facility] [address] [place] [address] 06/05/2024 Lenore Nogueira [facility] [address] [place] [address] 08/05/2024 Lenore Nogueira Right sciatic nerve pain M54.31 [facility] [address] [place] [address] 08/14/2024 Lenore Nogueira Dysphagia, unspecifi ed R13.10 and Essential (primary) hypertension I10 Assessments Encounter Date Diagnosis (ICD Code) Assessment Notes Treatment Notes Treatment Clinical Notes Section Notes 06/05/2024 Acrochordfartun (ICD-10 - L91.8) [facility], [place] on vacation unable to get him in 08/31/2024 Right wrist pain (ICD-10 - M25.531) TOradol 60 IM 10/13/2024 Essential (primary) hypertension (ICD-10 - I10) did not take BP med yet today monitor at home, report if running higher 130/80 10/13/2024 Frequent headaches (ICD-10 - R51.9) start taking amitrip nightly keep headache diary try Vit B2 and Magnesium glycinate supplements Nurtec and Ubrelvy samples given [facility] Toradol 60 IM 11/20/2024 Right sciatic nerve pain (ICD-10 - M54.31) discussed stretching wt loss 11/20/2024 Right foot pain (ICD-10 - M79.671) consider insoles, new shoes discussed wt loss, podiatry 11/30/2024 Cough (ICD-10 - R05.9) 11/30/2024 Arthritis (ICD-10 - M19.90) 12/24/2024 Migraine (ICD-10 - G43.909) toradol and norflex 60 nurtec samples seeing [facility], neuro [facility]? 12/28/2024 Right ankle pain (ICD-10 - M25.571) ? gout toradol 60 phenergan 25 kenalog 120 start oral prednisone tomorrow podiatry fu check on [facility] labs, uric acid level? no injury that aware of 01/01/2025 Hyperlipidemia (ICD-10 - E78.5) patient states no family hx IA, stroke ASCVD score 2.4 wants to work on lifestyle changes handouts given on diet, discussed 01/01/2025 Vertigo (ICD-10 - R42) Dr Blair gave Cipro on past with steroids and helped wants to try again 02/11/2025 Migraine (ICD-10 - G43.909) toradol 60 norflex 60 samples of nurtec, ubrelvy given has fu with [facility] 03/02/2025 Acute back pain (ICD-10 - M54.9) Toradol and Norflex 60 kenalog 120 fu as needed 03/16/2025 Migraine (ICD-10 - G43.909) Toradol 60 Norflex 60 samples nurtec, ubrelvy fu [facility] , neuro fu there? 05/18/2024 Right sciatic nerve pain (ICD-10 - M54.31) 08/05/2024 Right sciatic nerve pain (ICD-10 - M54.31) 08/14/2024 Dysphagia, unspecified (ICD-10 - R13.10) 09/04/2024 Right wrist pain (ICD-10 - M25.531) 09/18/2024 Right wrist pain (ICD-10 - M25.531) 11/16/2024 COVID-19 (ICD-10 - U07.1) 12/28/2024 Right sciatic nerve pain (ICD-10 - M54.31) 12/31/2024 Right ankle pain (ICD-10 - M25.571) 12/31/2024 Arthritis (ICD-10 - M19.90) 09/14/2024 Insomnia (ICD-10 - G47.00) trial of amitrip discussed sleep hygiene 09/29/2024 Acute non-recurrent sinusitis, unspecified location (ICD-10 - J01.90) Rest and drink more liquids, especially water. You may use a humidifier or vaporizer to help keep the drainage moist. Yglm-cgs-ccxnheg Nasal Saline may help the stuffy and runny nose. Use Ibuprofen and or Tylenol as needed for fever, chills, body aches or pain. Children 5 years old should not be given pnbr-lbo-xyoqqlw cough and cold medications such as guaifenesin and dextromethorphan. If you're over age 5, you may try bzlq-sll-ackrpit cold medications such as guaifenesin and dextromethorphan, or multi-symptom cold reliever such as Dayquil to help reduce the symptoms. Antibiotics have been prescribed. You should take these until completed and follow the directions. Antibiotics can sometimes cause upset stomach, and in rare cases, serious allergic reactions or serious gastrointestinal problems. If you start having severe abdominal pain, severe vomiting, or bloody diarrhea, you should be reevaluated by your physician or urgent care immediately. Follow up with your Primary Care Provider or return to clinic if symptoms do not improve within 3-5 days 01/20/2025 Right sciatic nerve pain (ICD-10 - M54.31) 09/29/2024 Nasal congestion (ICD-10 - R09.81) 12/31/2024 Hyperlipidemia (ICD-10 - E78.5) 08/14/2024 Essential (primary) hypertension (ICD-10 - I10) 02/11/2025 Right sciatic nerve pain (ICD-10 - M54.31) kenalog 120 08/31/2024 Tension headache (ICD-10 - G44.209) sample nurte and ubrelvy given Plan Of Treatment Pending Test Test Name Order Date CMP - Comprehensive Metabolic Panel 03/2025 Uric Acid 12/31/2024 LIPID PROFILE 12/31/2024 Medications Administered Medication Instructions Date of Administration Dosage Notes Kenalog 09/19/2023 80 mg 80 Ketorolac Tromethamine 09/19/2023 60 mg 60 Ketorolac Tromethamine 08/31/2024 60 mg Ketorolac Tromethamine 10/13/2024 60 mg 60 Ketorolac Tromethamine 11/20/2024 60 mg Ketorolac Tromethamine 12/28/2024 60 mg Ketorolac Tromethamine 02/11/2025 60 mg Ketorolac Tromethamine 03/02/2025 60 mg Ketorolac Tromethamine 03/16/2025 60 mg Orphenadrine Citrate 02/11/2025 60 mg Orphenadrine Citrate 03/02/2025 60 mg Orphenadrine Citrate 03/16/2025 60 mg Promethazine 25mg 12/28/2024 25 mg Triamcinolone 40 mg/ml 11/20/2024 80 mg Triamcinolone 40 mg/ml 12/28/2024 120 mg Triamcinolone 40 mg/ml 02/11/2025 120 mg Triamcinolone 40 mg/ml 03/02/2025 120 mg Medical (General) History Medical History History ICD Code Anxiety F41.9 Skin tags, multiple acquired L91.8 Knee pain, left M25.562 Occult blood in stools R19.5 Insomnia G47.00 Tension headache G44.209 Tendonitis M77.9 Back pain, thoracic M54.6 Acute paronychia of finger L03.019 Over weight E66.3 Bronchitis J40 Surgical History Surgery Date(Month/Year) Tosilectomy
[2025-05-02 19:05] VITALS: BP 162/90; PULSE 81; TEMP 36.4; O2SAT 97; BMI 39.2
--- NOTE | 2025-05-02 19:12 | ED.HA1 ---
HPI - Headache General Chief Complaint: Headache Stated Complaint: HEADACHE Time Seen by Provider: 05/02/25 19:06 Source: patient Mode of arrival: walk-in Limitations: no limitations History of Present Illness HPI Narrative: cc -migraine headache 44-year-old male with history of chronic and recurrent migraines presents with generalized headache that migrates from the occiput around to both right and left forehead. He has associated nausea. He denies any visual change. No photophobia or phonophobia. He typically takes Nurtec for his pain but is out. He has been taking Excedrin for the last 36 hours. He currently rates the pain 8 out of 10. No recent fall or injury to the head or neck. He denies any neck pain, fever, chills, upper respiratory or sinus symptoms. No ear pain or sore throat. Recent travel or known ill exposure. Related Data Home Medications ?Medication ?Instructions ?Recorded ?Confirmed losartan 50 mg tablet mg 05/02/25 omeprazole 40 mg capsule,delayed mg 05/02/25 release Previous Rx's ?Medication ?Instructions ?Recorded ondansetron 4 mg disintegrating 4 mg PO Q6H PRN headache #20 tabs 05/02/25 tablet Allergies Allergy/AdvReac Type Severity Reaction Status Date / Time Benzodiazepines Allergy Unknown Unknown Verified 05/02/25 19:11 ssri Allergy Unknown Unknown Uncoded 05/02/25 19:11 PFSH PFSH Social History Little interest or pleasure in doing things: not at all Feeling down, depressed, or hopeless: not at all Exam Narrative Exam Narrative: Nurses notes and vital signs reviewed and patient is not hypoxic. afebrile General: Well-appearing and in no apparent distress. Skin: Warm, dry, no pallor noted. Head: Normocephalic, atraumatic. Neck: Supple, non-tender. No cervical lymphadenopathy. No meningismus. Eye: Pupils are equal, round and EOMI. No scleral icterus. Ears, Nose, Mouth, and Throat: Oral mucosa is moist Cardiovascular: Regular Rate and Rhythm without murmur, gallop or rub. Respiratory: No accessory muscle use or respiratory distress. Lungs are clear to auscultation, no wheezing, rales or rhonchi Back: No midline thoracic vertebral tenderness. Musculoskeletal: normal ROM Neurological: A&O x4. No cranial nerve dysfunction observed. No truncal ataxia. Moves all extremities. Sensation intact. Psychiatric: Cooperative and interactive. Normal mood and affect. Constitutional Vital Signs, click to edit/add: Last Vital Signs Temp 97.6 F 05/02/25 19:05 Pulse 71 05/02/25 21:06 Resp 18 05/02/25 21:06 BP 138/74 05/02/25 21:06 Pulse Ox 94 L 05/02/25 21:06 O2 Del Method Room Air 05/02/25 19:05 Course Vital Signs Vital signs: Vital Signs Temperature 97.6 F 05/02/25 19:05 Pulse Rate 81 05/02/25 19:05 Respiratory Rate 18 05/02/25 19:05 Blood Pressure 162/90 H 05/02/25 19:05 Pulse Oximetry 97 05/02/25 19:05 Oxygen Delivery Method Room Air 05/02/25 19:05 Temperature 97.6 F 05/02/25 19:05 Pulse Rate 71 05/02/25 21:06 Respiratory Rate 18 05/02/25 21:06 Blood Pressure 138/74 05/02/25 21:06 Pulse Oximetry 94 L 05/02/25 21:06 Oxygen Delivery Method Room Air 05/02/25 19:05 MDM - Headache MDM Narrative Medical decision making narrative: Peripheral IV was ordered to be established and the patient was ordered to receive IV Toradol, IV Solu-Medrol and IV Zofran - he states this is typically worked for him in the past. On recheck @ 2009, the patient rated his pain as still being significant although slightly improved to 6/10. He declined offer for Phenergan and Reglan, but I did order another 4mg zofran to be given. He agreed to receive magnesium sulfate 1gm IV. On recheck at 2129, the patient's headache had decreased to 4/10 and he was ready to try and go home. Patient was discharged home and encouraged to call his PCP to get his Nurtec refilled. ED return if he worsens Discharge Plan Discharge Chief Complaint: Headache Clinical Impression: Migraine Patient Disposition: Home, Self-Care Time of Disposition Decision: 21:40 Prescriptions / Home Meds: New ondansetron 4 mg tablet,disintegrating 4 mg PO Q6H PRN (Reason: headache) Qty: 20 0RF No Action losartan 50 mg tablet omeprazole 40 mg capsule,delayed release(DR/EC) Print Language: [place] Instructions: Migraine Headache (ED) Referrals: TRISTON HANCOCK [Primary Care Provider, Family Practice] - 1 week
[2025-05-02 19:32] VITALS: BP 162/90; PULSE 69; O2SAT 94
[2025-05-02] MEDS: KETOROLAC TROMETHAMINE 30 MG/ML VIAL IVP (19:40)
[2025-05-02] MEDS: METHYLPREDNISOLONE SOD SUCC PF 125 MG/2 ML VIAL IVP (19:40)
[2025-05-02 20:09] VITALS: BP 137/81; PULSE 78; O2SAT 94
[2025-05-02] MEDS: MAGNESIUM SULFATE/D5W 1 GM/100 ML PREMIX IV (20:40)
[2025-05-02 21:06] VITALS: BP 138/74; PULSE 71; O2SAT 94
[2025-05-02 22:01] VITALS: BP 138/80; PULSE 77; TEMP 36.9; O2SAT 94
--- NOTE | 2025-05-02 22:05 | PC.NURSE ---
i gave this patient verbal and written discharge orders along with 1 e-script and this patient voices yes to understanding these. at time of discharge this patient voices no concerns, needs and shows no signs of distress
== END 2025-05-02 22:05 | disposition home or self-care (01) ==
PROVIDERS: Emergency Provider Emergency Medicine; PCP Nurse Practitioner Family
DX: G43.909 Migraine, unspecified, not intractable, without status migrainosus (principal)
CPT/HCPCS: 96365; 96375; 96376; 99284; J1885; J2405; J2919; J3475